=== PATIENT | female | born 1955 | race Caucasian/White ===

== ENCOUNTER 2024-10-04 18:06 | Inpatient (IN) | payer MEDICARE, SELFPAY ==
[2024-10-04] VITALS (19 sets, daily range): BP systolic 120–152; BP diastolic 69–85; PULSE 100–132; RESP 22–32; TEMP 36.7–36.9; O2SAT 89–96; BMI 43.6
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
--- NOTE | 2024-10-04 19:39 | CRLHL7_ITS ---
For Patients: As a result of the Century Cures Act, medical imaging exams and procedure reports are released immediately into your electronic medical record. You may view this report before your referring provider. If you have questions, please contact your health care provider. INDICATION: Dyspnea and weakness. TECHNIQUE: Chest 2 views. COMPARISON: None. FINDINGS: Cardiovascular and mediastinum: There is cardiomegaly . Lungs and pleural spaces: Diffuse vascular congestion and interstitial edema. No lobar consolidation. No sign of pleural effusion or pneumothorax. Bones and soft tissues: No significant findings. IMPRESSION: Findings suggesting congestive heart failure with diffuse interstitial edema. Dictated by Waldemar Ruff MD @ 10/04/2024 8:45:28 PM (Electronically Signed)
[2024-10-04 20:33] LABS: Basophils Absolute Auto 0.03 K/uL (0.00-0.30); Basophils Percent Auto 0.3 % (0.0-3.0); Eosinophils Absolute Auto 0.08 K/uL (0.00-0.50); Eosinophils Percent Auto 0.8 % (0.0-7.0); Hematocrit 41.5 % (33.0-51.0); Hemoglobin* 11.9 gm/dL (12.0-16.0); Immature Granulocytes Abs Auto 0.03 K/uL (0.00-0.30); Immature Granulocytes Pct Auto 0.3 %; Lymphocytes Percent Auto 7.6 % (20-44); Mean Corpuscular HGB Conc 29 gm/dL (32-36); Mean Corpuscular Hemoglobin 30 pg (26-34); Mean Corpuscular Volume 103 fL (80-100); Monocytes Percent Auto 7.7 % (0.0-11.0); Neutrophils Percent Auto 83.3 % (42.0-72.0); Platelet Count* 100 K/uL (140-440); RDW Coefficient of Variation % 12.8 % (11.5-15.5); Red Blood Count 4.03 m/uL (4.00-5.20); White Blood Count* 9.68 K/uL (4.50-11.00)
[2024-10-04 20:36] LABS: Slide Review Reflex No
[2024-10-04 20:48] LABS: Albumin* 3.9 g/dL (3.3-5.0); Chloride* 97 mmol/L (96-114); Potassium* 4.1 mmol/L (3.6-5.1); Sodium* 144 mmol/L (135-149)
[2024-10-04 20:51] LABS: Alanine Aminotransferase* 13 U/L (4-35); Alkaline Phosphatase* 78 U/L (40-150); Aspartate Amino Transferase* 17 U/L (12-35); Bilirubin Total* 0.8 mg/dL (0.1-1.5); Blood Urea Nitrogen* 18 mg/dL (7-30); Creatinine* 0.8 mg/dL (0.5-1.5); Estimated Glomerular Filt Rate 80 ml/min; Glucose* 105 mg/dL (60-115); Total Protein* 6.8 g/dL (6.0-8.3)
[2024-10-04 20:52] LABS: Calcium* 9.3 mg/dL (8.4-10.6)
[2024-10-04 20:56] LABS: Anion Gap 7 mEq/L (7-15)
[2024-10-04 20:58] LABS: Carbon Dioxide* 39 mmol/L (20-32)
[2024-10-04 21:03] LABS: NT Pro B Type NatriureticPept* 1790 pg/mL; Troponin I* 0.03 ng/mL (0.01-0.04)
--- OUTSIDE RECORDS SUMMARY | 2024-10-04 21:08 | XMS_ITS | Encounter Summary ---
Author Organization [facility] Address [address] [place] [address] Care Team Providers Care Laborer/Key Man Name Role Phone Saleem Call M.D. Primary Care Provider [phone] Encounter Details Date Type Department Care Team (Latest Contact Info) Description 08/25/2024 6:10 PM PORTAL DEVELOPER - 08/25/2024 11:59 PM [facility] Encounter Department of Laboratory Medicine in [address] [phone] Lona Cedillo M.D. [address] [place] [address] Graves' Disease Discharge Disposition: Home or Self Care Social History Tobacco Use Types Packs/Day Years Used Date Smoking Tobacco: Former Cigarettes Q uit: 03/22/1978 Smokeless Tobacco: Never Alcohol Use Standard Drinks/Week Comments Yes 0 (1 standard drink = 0.6 oz pure alcohol) social; 1 drink every few months [facility] Utilities Answer Date Recorded In the past 12 months has e [place] [employer], gas, oil, or water [employer] threatened to shut off services in your home? No 11/05/2023 Humiliation, Afraid, Rape, and Kick questionnair e Answer Date Recorded Within the last year, have y ou been afraid of your partner or ex-partner? No 10/24/2023 Within the last year, have y ou been humiliated or emotionally abused in other ways by your partner or ex-partner? No Within the last year, have y ou been kicked, hit, slapped, or otherwise physically hurt by your partner or ex-partner? No 10/24/2023 Within the last year, have y ou been raped or forced to have any kind of sexual activity by your partner or ex-partner? No 10/24/2023 Social Connection and Isolation Panel [NHANES] A nswer Date Recorded In a typical week, how many times do you talk on the phone with family, friends, or neighbors? Twice a week 01/15/20 How often do you get togethe r with friends or relatives? Once a week 01/15/2020 How often do you attend chur ch or restorationist services? 1 to 4 times per year 01/15/2020 Do you belong to any clubs o r organizations such as yarsanism groups, unions, fraternal or athletic groups, or school groups? Yes 01/15/2020 How often do you attend meet ings of the clubs or organizations you belong to? 1 to 4 times per year 01/15/2020 Are you , , di vorced, , never , or living with a partner? 01/15/2020 AUDIT-C Answer Date Recorded Q1: How often do you have a drink containing alc ohol? Monthly or less 01/15/2020 Q2: How many drinks containi ng alcohol do you have on a typical day when you are drinking? 1 or 2 01/15/2020 Q3: How often do you have si x or more drinks on one occasion? Never 01/15/2020 Overall Financial Resource Strain (CARDIA) Answe r Date Recorded How hard is it for you to pa y for the very basics like food, housing, medical care, and heating? Somewhat hard 01/15/2020 PHQ-2 Answer Date Recorded PHQ-2 Score 3 05/05/2024 [facility] - Occupational Stress Questionnaire Answer Date Recorded Do you feel stress - tense, restless, nervous, or anxious, or unable to sleep at night because your mind is troubled all the time - these days? Rather much 01/15/2020 Exercise Vital Sign Answer Date Recorde d On average, how many days pe r week do you engage in moderate to strenuous exercise (like a brisk walk)? 0 days 11/05/2023 On average, how many minutes do you engage in exercise at this level? 0 min 11/05/2023 Hunger Vital Sign Answer Date Recorded Within the past 12 months, y ou worried that your food would run out before you got the money to buy more. Never true 11/05/19 Within the past 12 months, t he food you bought just didn't last and you didn't have money to get more. Never true 11/05/2023 PRAPARE - Transportation Answer Date Re corded In the past 12 months, has l ack of transportation kept you from medical appointments or from getting medications? No 10/12 In the past 12 months, has l ack of transportation kept you from meetings, work, or from getting things needed for daily living? Yes 11/05/2023 Depression Answer Date Recor ded PHQ-9 Total Score (max 27) 12 05/05 Nutrition Answer Date Recorded On average, how many serving s of fruits and vegetables do you eat per day (serving size is equal to 1 cup or approximately the size of a tennis ball)? 0-2 11/05/2023 Dental Answer Date Recorded Dental: Regular Dentist No 10/24/19 Employment Answer Date Recorded Employment status Retired 11/05/2023 Housing Stability Answer Date Recorded What is your living situation today? I have a [facility] place to live 11/05/2023 Education Answer Date Recorded What is the highest level of school you have completed or the highest degree you have received? 12th grade 01/15/2020 Comments No Sex and Gender Information Value Date Recorded Sex Assigned at Female 11/05/2023 11:46 AM PORTAL DEVELOPER Legal Sex Female 11:47 AM PORTAL DEVELOPER Gender Identity Female 11/05/2023 11:46 AM PORTAL DEVELOPER Sexual Orientation Straight 11/05/2023 11 :46 AM PORTAL DEVELOPER documented as of this encounter Medications at Time of Discharge acetaminophen (TYLENOL) 500 mg tablet Take 2 tablets (1,000 mg total) by mouth 4 (four) times a day as needed for pain. 03/01/2023 amoxicillin (for_AMOXIL) 500 mg capsule Take 4 capsules by mouth once. Prior to dental procedure 10/09/2011 apixaban (Eliquis) 5 mg tablet Take 1 tablet (5 mg total) by mouth 2 (two) times a day. 180 tablet 3 07/09/2024 atorvastatin (Lipitor) 40 mg tablet take one tablet by mouth at bedtime 90 tablet 3 05/14/2024 B complex-vitamins (Balanced B-50) tablet Take 1 tablet by mouth daily. carvediloL (Coreg) 6.25 mg tablet Take 1 tablet (6.25 mg total) by mouth 2 (two) times a day with meals. 180 tablet 3 07/09/2024 cholecalciferol, vitamin D3, (cholecalciferol ) 25 mcg (1,000 Unit) tabletIndication s:Deficiency Vitamin D Take 1 tablet (25 mcg total) by mouth daily. 30 tablet 11 07/10/2024 ferrous sulfate 325 mg (65 mg iron) tablet Take 1 tablet (65 mg of iron total) by mouth every other day. 03/01/2023 gabapentin (Neurontin) 300 mg capsule Take 1 capsule (300 mg total) by mouth 3 (three) times a day. 180 capsule 3 07/09/2024 gabapentin (Neurontin) 600 mg tablet TAKE ONE TABLET BY MOUTH AT BEDTIME . 90 tablet 3 04/15/2024 levothyroxine (SYNTHROID, LEVOTHROID) 137 mcg tablet Take 1 tablet (137 mcg total) by mouth daily. 90 tablet 3 10/31/2023 lidocaine (LIDODERM) 5 % Place 1 patch on the skin daily. Apply to lower back. 03/01/2023 oxyCODONE (Roxicodone) 5 mg immediate release tabletIndication s:Chronic Pain/Nonacute Pain Take 1 tablet (5 mg total) by mouth every 6 (six) hours as needed for pain Indication: Chronic Pain/Nonacute Pain. 120 tablet 07/09/2024 polyethylene glycol (MIRALAX) 17 gram powder packet Take 1 packet (17 g total) by mouth daily as needed for constipation. Dissolve each 17 g dose in 240 mLs (8 ounces) of beverage. 03/01/2023 spironolactone (Aldactone) 25 mg tablet Take 1 tablet (25 mg total) by mouth daily. Fill upon patient reqest. 90 tablet 3 07/09/2024 torsemide (Demadex) 20 mg tablet Take 1 tablet (20 mg total) by mouth daily. 90 tablet 3 07/09/2024 documented as of this encounter Plan of Treatment Not on file documented as of this encounter Procedures Procedure Name Priority Date/Time Associated Diagnosis Comments THYROGLOBULIN MASS SPECTROMETRY, S Routine 08/25/2024 6:37 PM PORTAL DEVELOPER THYROGLOBULIN, TM, REFLEX TO LC-MS/MS OR IMMUNOASSAY, S Routine 08/25/2024 6:37 PM PORTAL DEVELOPER Graves' Disease documented in this encounter Results * (ABNORMAL) Thyroglobulin Mass Spectrometry (08/25/2024 6:37 PM PORTAL DEVELOPER) Thyroglobulin, Back Strip Machine Operator., S 95(H) Athyrotic <0.2, Intact thyroid <=33 ng/mL 09/11/2024 1:51 PM PORTAL DEVELOPER [facility] Interpretation Thyroglobulin (Tg) levels must be interpreted in the context of TSH levels, serial Tg measurements and radioiodine ablation status. Tg levels of > or = 10 ng/mL in athyrotic individuals on suppressive therapy indicate a significant (>25%) risk of clinically detectable recurrent papillary/folli cular thyroid cancer. 09/11/2024 1:51 PM PORTAL DEVELOPER [facility] Comment: ----ADDITIONAL INFORMATION---- PLEASE NOTE: Flagging is based on athyrotic individuals. The testing method is LC-MS/MS of an immunoaffinity purified tryptic digest of thyroglobulin. Values obtained from different assay methods or kits may be different and cannot be used interchangeably. The results cannot be interpreted as absolute evidence for the presence or absence of malignant disease. This test was developed and its performance characteristics determined by [facility] in a manner consistent with CLIA requirements. This test has not been cleared or approved by the U.S. Food and Drug Administration. Blood 08/25/2024 6:37 PM PORTAL DEVELOPER 08/27/2024 2:10 PM PORTAL DEVELOPER Lona R Nguyen M.D. LAB BLOOD NON ADD-ON Fin al Result Performing Organization Address [facility] de Phone Number [facility] [address] [place] [address] [facility] [address] [place] [address] [place] [id number] * (ABNORMAL) Thyroglobulin, Tumor Marker Reflex to LC-MS/MS or Immunoassay (08/25/2024 6:37 PM PORTAL DEVELOPER) Thyroglobulin Antibody, S 12(H) <1.8 IU/mL 08/27/2024 9:17 AM PORTAL DEVELOPER [facility] Comment: Thyroglobulin Antibody > or = 1.8 IU/mL. Thyroglobulin performed by LC-MS/MS to follow. PLEASE NOTE: The given cutoff of <1.8 IU/mL is for the detection of potential thyroglobulin antibody (TgAb) interference in thyroglobulin immunoassays. Thyroglobulin flagging is based on athyrotic reference values. A thyroglobulin antibody (TgAb) reference cutoff of <4.0 IU/mL may be more suitable for the evaluation of autoimmune thyroiditis. The thyroglobulin antibody testing method is an immunoenzymatic assay manufactured by [employer] and performed on the [employer] DXI 800. Values obtained from different assay methods or kits may be different and cannot be used interchangeably. The results cannot be interpreted as absolute evidence for the presence or absence of malignant disease. Blood (Blood, Venous) 08/25/2024 6:37 PM PORTAL DEVELOPER 08/27/2024 8:02 AM PORTAL DEVELOPER Lona Cedillo M.D. LAB BLOOD NON ADD-ON Fin al Result Performing Organization Address [facility] Co de Phone Number [facility] [address] [place] [address] [facility] [address] [place] [address] documented in this encounter Visit Diagnoses Diagnosis Graves' Disease documented in this encounter Additional Health Concerns Assessment Noted Time PHQ-9 Depression Total Score: 12 024 2:10 PM CDT documented as of this encounter Care Teams Laborer/Key Man Relationship Specialty Start Date End Date Saleem Call M.D. [phone] [place] [phone] PCP - General 06/22/17 [employer] 10/24/23 documented as of this encounter
--- OUTSIDE RECORDS SUMMARY | 2024-10-04 21:08 | XMS_ITS | Clinical Summary ---
Author Organization [facility] Address [address] [place] [address] Care Team Providers Care Electric Locomotive Crane Operator Name Role Phone Saleem Call M.D. Primary Care Provider [phone] Source Comments Patient records contain information from all sites at [facility]. For routine questions regarding patient records, call [phone] during business hours, M-F 8:00 AM - 5:00 PM Central Time. Record requests for emergency care only can be directed to [phone] at any time.[facility] Allergies Active Allergy Reactions Criticality Noted Date Comments Adhesive Tape-Silicones Other (see comments) Skin tears per [employer] Chloroprene Polymer Rash 05/23/2018 Codeine GI intolerance 11/17/2013 Hydrocodone-Acetaminophe n Other (see comments) 10/02/2011 No reaction noted in [employer]. Nitrofurantoin Monohyd/M-Cryst Other (see comments) 06/21/2023 Query acute pulmonary toxicity. Had marked increase in dyspnea after following the drug on 2 occasions. Sulfa (Sulfonamide Antibiotics) GI intolerance 07/24/2014 Thimerosal Other (see comments) 03/07/2016 Red, itchy eyes. Medications * This document contains information received from the source organization and may not represent a complete record from that organization. amoxicillin (for_AMOXIL) 500 mg capsule Take 4 capsules by mouth once. Prior to dental procedure 2 Active acetaminophen (TYLENOL) 500 mg tablet Take 2 tablets (1,000 mg total) by mouth 4 (four) times a day as needed for pain. 3 Active lidocaine (LIDODERM) 5 % Place 1 patch on the skin daily. Apply to lower back. 3 Active Additional Information Patient taking differently:1 patch transdermalAs needed, Apply to lower back., Informant: Self, Reported on 08/26/2024 polyethylene glycol (MIRALAX) 17 gram powder packet Take 1 packet (17 g total) by mouth daily as needed for constipation. Dissolve each 17 g dose in 240 mLs (8 ounces) of beverage. 3 Active ferrous sulfate 325 mg (65 mg iron) tablet Take 1 tablet (65 mg of iron total) by mouth every other day. 3 Active levothyroxine (SYNTHROID, LEVOTHROID) 137 mcg tablet Take 1 tablet (137 mcg total) by mouth daily. 90 tablet 3 4 Active Additional Information Patient not taking.Reported on 08/26/2024 gabapentin (Neurontin) 600 mg tablet TAKE ONE TABLET BY MOUTH AT BEDTIME . 90 tablet 3 4 Active atorvastatin (Lipitor) 40 mg tablet take one tablet by mouth at bedtime 90 tablet 3 4 Active B complex-vitami ns (Balanced B-50) tablet Take 1 tablet by mouth daily. Active oxyCODONE (Roxicodone) 5 mg immediate release tabletIndicati ons:Chronic Pain/Nonacute Pain Take 1 tablet (5 mg total) by mouth every 6 (six) hours as needed for pain Indication: Chronic Pain/Nonacute Pain. 120 tablet 4 Active apixaban (Eliquis) 5 mg tablet Take 1 tablet (5 mg total) by mouth 2 (two) times a day. 180 tablet 3 4 Active carvediloL (Coreg) 6.25 mg tablet Take 1 tablet (6.25 mg total) by mouth 2 (two) times a day with meals. 180 tablet 3 4 Active gabapentin (Neurontin) 300 mg capsule Take 1 capsule (300 mg total) by mouth 3 (three) times a day. 180 capsule 3 4 Active spironolactone (Aldactone) 25 mg tablet Take 1 tablet (25 mg total) by mouth daily. Fill upon patient reqest. 90 tablet 3 4 07/09/20 25 Active torsemide (Demadex) 20 mg tablet Take 1 tablet (20 mg total) by mouth daily. 90 tablet 3 4 Active cholecalcifero l, vitamin D3, (cholecalcifer ol) 25 mcg (1,000 Unit) tabletIndicati ons:Deficiency Vitamin D Take 1 tablet (25 mcg total) by mouth daily. 30 tablet 11 4 Active ascorbic acid, vitamin C, (ascorbic acid) 500 mg tablet Take 500 mg by mouth daily. Active MAGNESIUM ORAL Take 1 tablet by mouth as needed (muscle cramps). Active Active Problems Problem Noted Date Diagnosed Date Depression Major Recurrent Mild 10/24/2023 Acidosis Lactic 02/16/2023 Unspecified Injury Liver Initial 02/16/2023 Hypothyroidism Acquired 02/16/2023 Thrombocytopenia 02/16/2023 Debility 02/16/2023 Encephalopathy Metabolic 02/16/2023 Cardiomyopathy 02/16/2023 Respiratory Failure With Hypoxia 02/13/2023 Chronic Kidney Disease (CKD) , Stage 3a Glomerular Filtration Rate (GFR) 45 To 59 11/16/2022 History Of Falling 03/15/2020 Morbid Severe Obesity Due To Excess Calories 02/2020 Venous Insufficiency Chronic Peripheral 09/08/20 19 Edema Leg Multifactorial 09/08/2019 Body Mass Index 35.0 To 35.9 Adult 09/07/2019 Fracture Femur Shaft Transve rse Nondisplaced Closed Subsequent With Routine Healing Right 09/06/2019 Anxiety Generalized Disorder 05/19/2019 Gammopathy Monoclonal Nonspecific 10/06/2016 Anemia 09/28/2016 Chronic Pain Syndrome 10/12/2015 Heart Failure NOS 01/05/2015 Major Depressive Disorder Single Episode Unspeci fied 12/15/2014 Overview (01/30/2017): Major Depression Single Episode NOS (296.20) Graves' Disease 09/15/2011 Atrial Fibrillation Unspecified 12/12/2010 Pain Hip Right Resolved Problems Problem Noted Date Diagnosed Date Resolved Date Hypercarbic Respiratory Failure 02/16/2023 10/24/2023 Acute Systolic (Congestive) Heart Failure 02/16/2023 06/21/2023 Failure Renal Acute (Acute Kidney Injury) 02/16/2023 04/05/2023 Single Subsegmental Thrombot ic Pulmonary Embolism Without Acute Cor Pulmonale 02/16/2023 Failed Total Hip Arthroplasty Initial Right 11/03/2019 11/16/2022 Overview (11/03/2019): Added automatically from request for surgery [id number] Stasis Ulcer With Varicose Vein Left 09/08/2019 10/24/2023 Acute On Chronic Diastolic ( Congestive) Heart Failure 09/07/2019 04/05/2023 Stasis Ulcer Varicose Vein Right 09/07/2019 10/24/2023 Urinary Tract Infection Site Not Specified 09/07/2019 01/27/2021 Ulcer Lower Limb 10/08/2017 03/22/2018 Ulcer Leg 02/15/2016 03/22/2018 Vascular (Lower Extremity) A nd Diabetic Ulcer NOS 06/14/2015 10/24/2023 Overview (05/19/2019): Bilateral Depressive Disorder 09/15/2011 07/22/20 19 Overview (01/30/2017): Depression Encounters Date Type Department Care Team Description 08/26/2024 1:30 PM MUTUAL FUNDS AGENT Virtual Visit Division of Endocrinology in [address] [phone] Lona Cedillo M.D. Graves' Disease 08/26/2024 12:45 PM MUTUAL FUNDS AGENT Clinical Communication Virtual Review in [address] [phone] Pre-visit Intake 08/25/2024 6:10 PM MUTUAL FUNDS AGENT - 08/25/2024 11:59 PM MUTUAL FUNDS AGENT Hospital Encounter Department of Laboratory Medicine in [address] [phone] Lona Cedillo M.D. Graves' Disease Discharge Disposition: Home or Self Care 08/06/2024 Orders Only Division of Endocrinology in [address] [phone] Lona Cedillo M.D. Graves' Disease (Primary Dx) 07/29/2024 Orders Only Division of Endocrinology in [place], [place] [address] [place] [address] Lona Cedillo M.D. Graves' Disease (Primary Dx) 07/15/2024 Orders Only [facility] PCP TH MNT Saleem Call M.D. Deficiency Estrogen Post Menopausal; Screening Mammogram Breast Cancer 07/10/2024 Orders Only Department of Family Medicine, [facility], in [address] [phone] Peyton Reyes APRN, C.N.P. Deficiency Vitamin D (Primary Dx) 07/09/2024 3:30 PM CDT Office Visit Department of Family Medicine, [facility], in [address] [phone] Peyton Reyes APRN, C.N.P. Anxiety Generalized Disorder (Primary Dx); Chronic Pain Syndrome; Hypovitaminosis D; Deficiency Vitamin D Discharge Disposition: Home or Self Care 07/09/2024 3:04 PM CDT - 07/09/2024 11:59 PM CDT Hospital Encounter Department of Laboratory Medicine in [address] [phone] Saleem Call M.D. Hypovitaminosis D; Graves' Disease; Chronic Kidney Disease (CKD), Stage 3a Glomerular Filtration Rate (GFR) 45 To 59 ([facility]) Discharge Disposition: Home or Self Care from Last 3 Months Immunizations Immunization Administration Dates Next Due PCV20 10/24/2023(Deferred: Patient dec isi) RZV (SHINGRIX) 10/24/2023(Deferred: Patient dec isi) SARS-COV-2 (COVID-19) - MODE RNA (12 YEARS AND OLDER) Fall Seasonal 10/24/2023(Deferred: Patient decision) SARS-COV-2 (COVID-19) - PFIZ ER (Discontinued)(12 years or older) 09/12/2021,12/28/2020,11/18/2020 Td (Adult), adsorbed 06/21/1993 Td Preservative Free (TENIVA C, DECAVAC) 06/03/2003 Tdap 08/22/2018 influenza trivalent high dos e (HD)(PF) 10/24/2023(Deferred: Patient decision) Family History Medical History Relation Name Comments Hypertension Brother 1 brother Drug abuse Brother 2 Klaus Coronary artery disease Father Roderick Heart attack Father Roderick Kidney disease Mother mother Relation Name Status Comments Brother 1 brother Brother 2 Klaus Father Roderick Mother mother Social History Tobacco Use Types Packs/Day Years Used Date Smoking Tobacco: Former Cigarettes Q uit: 03/22/1978 Smokeless Tobacco: Never Tobacco Cessation:Counseling Given: Not Answered Alcohol Use Standard Drinks/Week Comments Yes 0 (1 standard drink = 0.6 oz pure alcohol) social; 1 drink every few months [facility] [employer] Answer Date Recorded In the past 12 months has e [employer], [employer], or water [employer] threatened to shut off services in your [...] week 01/15/2020 How often do you attend [facility] or gnosticism services? 1 to 4 times per year 01/15/2020 Do you belong to any clubs o r organizations such as sabianist groups, unions, fraternal or athletic groups, or [...] Answer Date Recorded PHQ-2 Score 3 05/05/2024 [facility] - Occupational Stress Questionnaire Answer Date Recorded [...] money to buy more. Never true 11/05/19 24 Within the past 12 months, t he [...] your living situation today? I have a [facility] place to live 11/05/2023 Education Answer Date Recorded What is the highest level of school you have completed or the highest degree you have received? 12th grade 01/15/2020 Comments No Sex and Gender Information Value Date Recorded Sex Assigned at Female 11/05/2023 11:46 AM MUTUAL FUNDS AGENT Legal Sex Female 11:47 AM MUTUAL FUNDS AGENT Gender Identity Female 11/05/2023 11:46 AM MUTUAL FUNDS AGENT Sexual Orientation Straight 11/05/2023 11 :46 AM MUTUAL FUNDS AGENT Last Filed Vital Signs Vital Sign Reading Time Taken Comments Blood Pressure 128/80 07/09/2024 3:25 PM CDT Pulse 87 07/09/2024 3:25 PM CDT Temperature 36.2 C (97.2 F) 07/09/2024 3:25 PM CDT Respiratory Rate 16 02/25/2024 7:09 PM CDT Oxygen Saturation 91% 02/25/2024 8:00 PM CDT Inhaled Oxygen Concentration - - Weight 126 kg (277 lb 12.5 oz) 07/09/2024 3:25 P M CDT Height 172.7 cm (5' 8) 04/15/2023 8:05 PM CDT Body Mass Index 42.24 04/15/2023 8:05 PM CDT Plan of Treatment Health Maintenance Due Date Last Done Comments Bone Density Scan (Osteoporosis Screen) 1955 CT Colonography 1955 Cologuard 1955 Colonoscopy 1955 FIT 1955 Mammogram 1955 Pneumococcal vaccine (50+ years) (1 of 2 - PCV) 11/09/1974 Zoster Vaccines (1 of 2) 11/09/2005 RSV vaccine - (32-36 weeks) or 60+ years (1 - Risk 60-74 years 1-dose series) 2015 COVID-19 Vaccine ( season) 2024 09/12/2021, 12/28/2020, 11/18/2020 Influenza Vaccine (#1) 2024 Depression Monitoring (PHQ-9) 09/04/2024 05/05/2024 Depression Monitoring (PHQ-9 for quality tracking) 09/10/2024 Fall Risk Screen (Annual) 09/10/2024 Visit: Medicare Annual Wellness 10/25/2024 10/24/2023 Creatinine Level (Kidney Function Test) 02/24/2025 02/25/2024, 10/24/2023, 04/30/2023, Additional history exists Potassium Level 02/24/2025 02/25/2024, 10/11, 04/30/2023, Additional history exists Sodium Level 02/24/2025 02/25/2024, 10/11, 04/30/2023, Additional history exists Thyroid Stimulating Hormone (TSH) test for thyroid function 07/09/2025 07/09/2024, 10/24/2023, 02/13/2023, Additional history exists Visit: Annual, age 65+ (or Medicare and <65) 07/09/2025 07/09/2024 Fasting Glucose for Diabetes Screening 02/24/2027 02/25/2024, 10/24/2023, 04/30/2023, Additional history exists DTaP,Tdap,and Td Vaccines (2 - Td or Tdap) 08/22/2028 08/22/2018, 06/03/2003, 06/21/1993 Hepatitis C Screening Completed 08/22/2018 Colorectal Cancer Screening Discontinued IPV Vaccines Aged Out No longer eligi ble based on patient's age to complete this topic Medical Devices Implanted Type Area Natural Resource Technician Device Identifier Shelf Expiration Date Model / Serial / Lot Hardware E.G. Pins/Screws/Jaron s Hardware e.g. pins/screws /rods Knee Description:Screws in left k nee. ACL repair. Trilogy-Screw 6.5x30 - Shepherd [id number] Implanted:Qty: 1 on 03/09/2011 Hardware e.g. pins/screws /rods [employer] Description:Device Manufactu rer - [employer]. Device Status Text - [id number]. Trilogy-Screw 6.5x40 - Shepherd [id number] Implanted:Qty: 1 on 03/09/2011 Hardware e.g. pins/screws /rods [employer] Description:Device Manufactu rer - [employer]. Device Status Text - [id number]. Hip Implant Hip Implant Right: Hip Zim-Liner Poly Xlpe 0 Deg 36x50 - Shepherd [id number] Implanted:Qty: 1 on 03/09/2011 Hip Implant Other/Legacy - See Implant Description [employer] Description:Device Manufactu rer - [employer]. Body Location - Other. Right. Device Status Text - [id number] [id number]. Zim. Shell Tril W Holes 54 - Shepherd [id number] Implanted:Qty: 1 on 03/09/2011 Hip Implant Other/Legacy - See Implant Description [employer] Description:Device Manufactu rer - [employer]. Body Location - Other. Right. Device Status Text - [id number] [id number]. [place]-Stem [place] 7 Hi - Shepherd [id number] Implanted:Qty: 1 on 03/09/2011 Hip Implant Other/Legacy - See Implant Description [employer] Description:Device Manufactu rer - [employer]. Body Location - Other. Right. Device Status Text - [id number] [id number]. J J Articul Darius Head 36 - 2.0 - Shepherd [id number] Implanted:Qty: 1 on 03/09/2011 Hip Implant Other/Legacy - See Implant Description [employer] Description:Device Manufactu rer - [employer]. Body Location - Other. Right. Device Status Text - [id number] [id number]. Procedures Procedure Name Priority Date/Time Associated Diagnosis Comments THYROGLOBULIN MASS SPECTROMETRY, S Routine 08/25/2024 6:37 PM MUTUAL FUNDS AGENT THYROGLOBULIN, TM, REFLEX TO LC-MS/MS OR IMMUNOASSAY, S Routine 08/25/2024 6:37 PM MUTUAL FUNDS AGENT Graves' Disease 25-HYDROXYVITAMIN D2 AND D3, S Routine 07/09/2024 3:13 PM CDT Hypovitaminosis D MAGNESIUM, S Routine 07/09/2024 3:13 PM CDT Chronic Kidney Disease (CKD), Stage 3a Glomerular Filtration Rate (GFR) 45 To 59 (HCC) THYROTROPIN RECEPTOR AB, S Routine 07/09/2024 3:13 PM CDT Graves' Disease THYROGLOBULIN, TM, REFLEX TO LC-MS/MS OR IMMUNOASSAY, S Routine 07/09/2024 3:13 PM CDT Graves' Disease T4 (THYROXINE), FREE, S Routine 07/09/2024 3:13 PM CDT Graves' Disease THYROID-STIMULATING HORMONE-SENSITIVE (S-TSH) Routine 07/09/2024 3:13 PM CDT Graves' Disease VITAMIN D, IMMUNOASSAY, TOTAL, S Routine 07/09/2024 3:13 PM CDT Hypovitaminosis D COMPREHENSIVE METABOLIC PANEL, S/P STAT 02/25/2024 7:30 PM CDT HCV AB SCRN W/REFLEX TO HCV PCR, S Routine 08/22/2018 11:35 AM MUTUAL FUNDS AGENT Screening Test Laboratory from Last 3 Months or Most Recently Relevant to Health Maintenance Results * (ABNORMAL) Thyroglobulin Mass Spectrometry (08/25/2024 6:37 PM MUTUAL FUNDS AGENT) Thyroglobulin, Kelly Machine Operator., S 95(H) Athyrotic <0.2, Intact thyroid <=33 ng/mL 09/11/2024 1:51 PM MUTUAL FUNDS AGENT [facility] Interpretation Thyroglobulin (Tg) levels must be interpreted in the context of TSH levels, serial Tg measurements and radioiodine ablation status. Tg levels of > or = 10 ng/mL in athyrotic individuals on suppressive therapy indicate a significant (>25%) risk of clinically detectable recurrent papillary/folli cular thyroid cancer. 09/11/2024 1:51 PM MUTUAL FUNDS AGENT [facility] Comment: ----ADDITIONAL INFORMATION---- PLEASE NOTE: Flagging is [...] developed and its performance characteristics determined by [facility] in a manner consistent with CLIA requirements. This test has not been cleared or approved by the U.S. Food and Drug Administration. Blood 08/25/2024 6:37 PM MUTUAL FUNDS AGENT 08/27/2024 2:10 PM MUTUAL FUNDS AGENT us Lona Cedillo M.D. LAB BLOOD NON ADD-ON Fin al Result [facility] [address] [place] [address] [facility] [address] [place] [address] [place] [address] * (ABNORMAL) Thyroglobulin, Tumor Marker Reflex to LC-MS/MS or Immunoassay (08/25/2024 6:37 PM MUTUAL FUNDS AGENT) Only the most recent of2 resultswithin the time period is included. Thyroglobulin Antibody, S 12(H) <1.8 IU/mL 08/27/2024 9:17 AM MUTUAL FUNDS AGENT [facility] Comment: Thyroglobulin Antibody > or = [...] method is an immunoenzymatic assay manufactured by [employer] and performed on the Z[employer] DXI 800. Values obtained from different assay methods or kits may be different and cannot be used interchangeably. The results cannot be interpreted as absolute evidence for the presence or absence of malignant disease. Blood (Blood, Venous) 08/25/2024 6:37 PM MUTUAL FUNDS AGENT 08/27/2024 8:02 AM MUTUAL FUNDS AGENT Lona Cedillo M.D. LAB BLOOD NON ADD-ON Fin al Result [facility] [address] [place] [address] [facility] [address] [place] [address] * (ABNORMAL) Vitamin D, Immunoassay, Total, Serum (07/09/2024 3:13 PM CDT) Pathologist [facility] [place] Vitamin D, Immunoassay, Total, S 9(L) 20 - 80 ng/mL 07/09/2024 9:42 PM CDT ECL[facility] Comment: Interpretation: <10 ng/mL (severe deficiency) Optimum levels within the healthy population are 20-50, patients with bone disease may benefit from high levels within this range Blood (Blood, Venous) 07/09/2024 3:13 PM CDT 07/09/2024 8:49 PM CDT Saleem Call M.D. LAB BLOOD ADD-ON Final Re sult Performing Organization Address City/[facility]/ZIP Co de Phone Number [facility] [address] [place] [address], [facility] ECLR [facility] [address] * Thyrotropin Receptor Antibody (07/09/2024 3:13 PM CDT) Pathologist [facility] [place] Thyrotropin Receptor Ab, S <1.10 0.00 - 1.75 IU/L 07/09/2024 9:30 PM CDT [facility] Comment: ----ADDITIONAL INFORMATION---- At a decision limit of 1.75 IU/L, this assay has 97% sensitivity and 99% specificity for detection of Graves' disease. In healthy individuals and in patients with thyroid disease without diagnosis of Graves' disease, the upper limit of anti-TSHR values are 1.22 IU/L and 1.58 IU/L, respectively (97.5th percentiles). Blood (Blood, Venous) 07/09/2024 3:13 PM CDT 07/09/2024 8:47 PM CDT Lona Cedillo M.D. LAB BLOOD ADD-ON Final R esult Performing Organization Address City/[facility]/ZIP Co de Phone Number [facility] [address] [place] [address] [facility] [address] [place] [address] * (ABNORMAL) 25-Hydroxyvitamin D2 and D3 (07/09/2024 3:13 PM CDT) 25-Hydroxy D2 <4.0 ng/mL 07/12/2024 1:19 AM CDT [facility] 25-Hydroxy D3 11 ng/mL 07/12/2024 1:19 AM CDT [facility] 25-Hydroxy D Total 11(L) ng/mL 2023 1:19 AM CDT [facility] Comment: Interpretation: 10-19 ng/mL (mild to moderate deficiency) ----REFERENCE VALUE---- 25-HYDROXY D TOTAL (D2+D3) Optimum levels in the healthy population are 20-50. ----ADDITIONAL INFORMATION---- This test was developed and its performance characteristics determined by [facility] in a manner consistent with CLIA requirements. This test has not been cleared or approved by the U.S. Food and Drug Administration. Blood (Blood, Venous) 07/09/2024 3:13 PM CDT 07/10/2024 8:02 AM CDT Lona Cedillo M.D. LAB BLOOD ADD-ON Final R esult Performing Organization Address City/[facility]/ZIP Co de Phone Number [facility] [address] [place] [address] [facility] [address] [place] [address] [place] [address] * S-TSH (Thyroid-Stimulating Hormone - Sensitive) (07/09/2024 3:13 PM CDT) TSH, Sensitive 0.3 0.3 - 4.2 mIU/L 07/09/2024 3:49 PM CDT [facility] Blood (Blood, Venous) 07/09/2024 3:13 PM CDT 07/09/2024 3:15 PM CDT us Lona Cedillo M.D. LAB BLOOD ADD-ON Final R esult Performing Organization Address City/[facility]/ZIP Co de Phone Number [facility] [address] [place] [id number], [facility] CNFL [facility] in [address] [address] * T4 (Thyroxine), Free (07/09/2024 3:13 PM CDT) T4 (Thyroxine), Free, P 1.1 0.9 - 1.7 ng/dL 07/09/2024 7:50 PM CDT [facility] Blood (Blood, Venous) 07/09/2024 3:13 PM CDT 07/09/2024 6:59 PM CDT us Lona Cedillo M.D. LAB BLOOD ADD-ON Final R esult Performing Organization Address [facility]/ZIP Co de Phone Number [facility] [address] [place] [address], [place] RDWG [facility] in [address] [phone] * (ABNORMAL) Magnesium (07/09/2024 3:13 PM CDT) Magnesium, P 1.4(L) 1.7 - 2.3 mg/dL 07/09/2024 3:32 PM CDT [facility]FL Blood (Blood, Venous) 07/09/2024 3:13 PM CDT 07/09/2024 3:15 PM CDT us Lona Cedillo M.D. LAB BLOOD ADD-ON Final R esult [facility] [address] [place] [address], [facility] CNFL [facility] in [address] [address] * (ABNORMAL) Comprehensive Metabolic Panel (02/25/2024 7:30 PM CDT) Potassium, P 4.1 3.6 - 5.2 mmol/L 02/25/2024 7:54 PM CDT [facility]FL Sodium, P 143 135 - 145 mmol/L 02/25/2024 7:54 PM CDT [facility] Chloride, P 106 98 - 107 mmol/L 02/25/2024 7:54 PM CDT [facility] Bicarbonate, P 26 22 - 29 mmol/L 02/25/2024 7:54 PM CDT [facility] Anion Gap, P 11 7 - 15 02/25/2024 7:54 PM CDT [facility] BUN (Blood Urea Nitrogen), P 18 6 - 21 mg/dL 02/25/2024 7:54 PM CDT [facility] Creatinine 1.05(H) 0.59 - 1.04 mg/dL 02/25/2024 7:54 PM CDT [facility] Estimated GFR (eGFR) 58(L) >=60 mL/min/BS A 02/25/2024 7:54 PM CDT [facility] Comment: Estimated GFR calculated using the 2020 CKD_EPI creatinine equation. Calcium, Total, P 9.1 8.8 - 10.2 mg/dL 02/25/2024 7:54 PM CDT [facility] Glucose, P 104 70 - 140 mg/dL 02/25/2024 7:54 PM CDT [facility] Protein, Total, P 6.5 6.3 - 7.9 g/dL 02/25/2024 7:54 PM CDT [facility] Albumin, P 3.9 3.5 - 5.0 g/dL 02/25/2024 7:54 PM CDT [facility] Aspartate Aminotransferase (AST), P 16 8 - 43 U/L 02/25/2024 7:54 PM CDT [facility]FL Alkaline Phosphatase, P 90 35 - 104 U/L 02/25/2024 7:54 PM CDT [facility]FL Alanine Aminotransferase (ALT), P 16 7 - 45 U/L 02/25/2024 7:54 PM CDT CNFL Bilirubin, Total, P 0.4 0.0 - 1.2 mg/dL 02/25/2024 7:54 PM CDT [facility] Blood (Blood, Venous) 02/25/2024 7:30 PM CDT 02/25/2024 7:34 PM CDT us Burak Morales P.A.-C., P.A. LAB BLOOD ADD-ON F inal Result Performing Organization Address City/[facility]/ZIP Co de Phone Number [facility] [address] [place] [address], [facility] CNFL [facility] [place] [address] * HCV Ab Scrn w/Reflex to HCV PCR, Serum (08/22/2018 11:35 AM MUTUAL FUNDS AGENT) HCV Ab Screen, S Nonreactive Nonreactive 08/23/2018 10:49 AM MUTUAL FUNDS AGENT [facility] Blood (Blood, Venous) 08/22/2018 11:35 AM MUTUAL FUNDS AGENT 08/22/2018 9:50 PM MUTUAL FUNDS AGENT Narrative [facility] - 08/23/2018 10:49 AM MUTUAL FUNDS AGENT Specimen Information: Specimen ID: [id number] Specimen Type: Blood Specimen Collection Start Date: 08/22/2018 11:35 AM Specimen Received Date: 08/22/2018 9:50 PM Specimen ID: [id number] Specimen Type: Blood Specimen Collection Start Date: 08/22/2018 11:35 AM Specimen Received Date: 08/22/2018 9:50 PM us Saleem Call M.D. LAB MICROBIOLOGY - BLOOD ORDERABLES Final Result Performing Organization Address City/[facility]/ZIP Co de Phone Number [facility] [address] [place] [address] from Last 3 Months or Most Recently Relevant to Health Maintenance Insurance [employer] Advance Directives For more information, please contact: [phone] Documents on File Type Date Recorded Patient Hand Tire Trimmer Expl anation Advance Directives 09/06/2019 7:52 PM POA for Healthcare * Full Code (Latest Code Status on File) Date Activated Date Inactivated Comments 02/13/2023 12:37 AM 03/06/2023 3:29 PM Question Answer Comments Full Code: Not Discussed Due to: Patient does not have the capaci ty * Full Code Date Activated Date Inactivated Comments 09/10/2019 5:47 PM 09/22/2019 6:51 PM Question Answer Comments Full Code: Discussed * Full Code Date Activated Date Inactivated Comments 09/06/2019 7:04 PM 09/10/2019 3:36 PM Question Answer Comments Full Code: Discussed Healthcare Agents on File Name Relationship Healthcare Agent Relationship Communication [facility] Care Agent Care Teams Electric Locomotive Crane Operator Relationship Specialty Start Date End Date Saleem Call M.D. [address] [place] [address] JAYESH Guerrero [phone] PCP - General 06/22/17 [employer] R[employer] Technician 10/24/23
--- OUTSIDE RECORDS SUMMARY | 2024-10-04 21:08 | XMS_ITS | Encounter Summary ---
Author Organization [facility] Address [address] [place] [address] Care Team Providers Care Medical Coordinator Pesticide Use Name Role Phone Saleem Call M.D. Primary Care Provider [phone] Reason for Visit * Outpatient (Routine) - Closed Specialty Diagnoses / Procedures Referred By Ronny bryant Referred To Contact Endocrinology Diagnoses Graves' Disease Lona Cedillo M.D. [address] [place] [phone] Phone: tel: fax: [facility] Referral ID Status Reason Start Date Expiration Date Visits Re quested Visits Authorized [id number] Closed 07/29/2024 01/28/2026 1 1 Encounter Details Date Type Department Care Team (Late st Contact Info) Description 08/26/2024 1:30 PM GERMINATION TESTING MANAGER Virtual Visit Division of Endocrinology in [place], [place] [address] [place] [phone] Lona Cedillo M.D. [address] [place] [phone] Graves' Disease Social History Tobacco Use Types Packs/Day Years Used Date Smoking Tobacco: Former Cigarettes Q uit: 03/22/1978 Smokeless Tobacco: Never Alcohol Use Standard Drinks/Week Comments Yes 0 (1 standard drink = 0.6 oz pure alcohol) social; 1 drink every few months [facility] Utilities Answer Date Recorded In the past 12 months has th e [employer], gas, oil, or water [employer] threatened to shut off services in your [...] often do you attend chur ch or christianity services? 1 to 4 times per year [...] Answer Date Recorded PHQ-2 Score 3 05/05/2024 [facility] [place] of Occupat ional Health - Occupational Stress Questionnaire Answer Date Recorded [...] your living situation today? I have a [facility] place to live 11/05/2023 Education Answer Date Recorded What is the highest level of school you have completed or the highest degree you have received? 12th grade 01/15/2020 Comments No Sex and Gender Information Value Date Recorded Sex Assigned at Female 11/05/2023 11:46 AM GERMINATION TESTING MANAGER Legal Sex Female 11:47 AM GERMINATION TESTING MANAGER Gender Identity Female 11/05/2023 11:46 AM GERMINATION TESTING MANAGER Sexual Orientation Straight 11/05/2023 11 :46 AM GERMINATION TESTING MANAGER documented as of this encounter Progress Notes * Lona Cedillo M.D. - 08/26/2024 1:30 PM CST [facility] Endocrinology, Diabetes, and Nutrition Progress Note Consult conducted via real-time audio/video technology by Lona Cedillo M.D. in [facility] to the patient in Patient's Home. The video was changed to a telephone. A friend was also listening in on the phone call today at the patient's request. SUBJECTIVE HISTORY OF PRESENT ILLNESS Zuleyma Samuel is a 68 y.o. female who presents for follow-up of Graves Disease. Please see my progress note dated November 05, 2023 for details. Briefly, Zuleyma Samuel has hadGraves since at least 2009. She had been on methimazole until February 2023 when she was hospitalized for unresponsiveness. 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 At that time, she had detectable TRAb, althoughit was not elevated. Methimazole was subsequently stopped and she was started on levothyroxine. At her post discharge follow-up appointment, her levothyroxine was discontinued when her TSH was suppressed and her free T4 was elevated. Interim history: She has remain off levothyroxine and off methimazole since her last visit in October 2023. 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 Palpitations: None; reports that she is always in A fib but does not monitor her heart rate at home Tremor: Yes in her hands; typically this happens when she is holding her phone Mood disturbance: Yes; increasingly frustrated and depressed mood; also feels more anxious in the last 1-2 months Changes in bowel habits: None reported Edema: Yes; slightly swollen as of yesterday and trying to use diuretics more regularly Eye symptoms: Yes; reports worsening cataracts and dry eyes Relevant labs: Latest Reference Range & Units 07/09/24 15:13 TSH, Sensitive 0.3 - 4.2 mIU/L 0.3 T4 (Thyroxine), Free, P 0.9 - 1.7 ng/dL 1.1 Thyrotropin Receptor Ab, S 0.00 - 1.75 IU/L <1.10 Thyroglobulin Antibody, S <1.8 IU/mL 9.8 (H) The following portions of the patient's history were reviewed and updated as appropriate: allergies, current medications, family history, medical history, social history, surgical history and problemlist. REVIEW OF SYSTEMS As per HPI. OBJECTIVE Physical examination was limited due to the nature of the visit. The patient was seen on video and appeared to be in no acute distress. DIAGNOSTICS Pertinent labs and imaging as per HPI. ASSESSMENT / PLAN #1 Graves Disease, now in remission Zuleyma Samuel is a 68 y.o. female who presents for follow-up of Graves Disease. After her hospitalization in February 2023, she was started on levothyroxine for hypothyroidism in the setting of elevated TSH associated with methimazole use. At her last visit, she had evidence of thyrotoxicosis and le vothyroxine was discontinued. She has now been off treatment for the last 10 months. Her recent labs are notable for normal thyroid function studies and undetectable TRAb. This suggests that she is currently in remission from her Graves disease. As such, she can remain off methimazole and off levothyroxine and have serial assessments upper thyroid function studies as outlined below. Of note, we had requested labs shortly after discontinuation of levothyroxine which were not drawnuntil 1.5 months ago. Her thyroglobulin is elevated, however this test is not clinically useful as she is no longer on levothyroxine. Despite her recent labs, she does report her anxiety has increased in the last 1-2 months. I will request repeat thyroid function studies in further evaluation. If these returned back with normal results, we will continue active surveillance for Graves disease recurrence. We reviewed the symptoms of thyrotoxicosis and encouraged her to have her thyroid function reassessed if she were to develop symptoms. Continue off levothyroxine and methimazole Repeat thyroid function tests due to increased anxiety; requested at [place] If thyroid function continues to be normal, plan to repeat thyroid function studies (TSH and free T4) again in February 2025 If thyroid function is normal in February 2025, I would recommend repeat TSH and free T4 in August 2025 with her primary care provider If these results are normal, she should be followed by annual assessments of thyroid function and aclinical thyroid examination starting in August 2026 I have recommended the following orders: #1 Graves' Disease - Endocrinology office visit (clinic) - S-TSH (Thyroid-Stimulating Hormone - Sensitive); Future; Expected date: 08/26/2024 - T4 (Thyroxine), Free; Future; Expected date: 08/26/2024 - S-TSH (Thyroid-Stimulating Hormone - Sensitive); Future; Expected date: 02/24/2025 - T4 (Thyroxine), Free; Future; Expected date: 02/24/2025 All questions were answered. Patient expressed satisfaction and is in agreement with the plan. Patient's care discussed with Dr. Vera Signed: Lona Cedillo M.D. Endocrinology fellow Cosigned by Eliezer Vera M.D. at 08/27/2024 12:05 PM GERMINATION TESTING MANAGER INATION TESTING MANAGER INATION TESTING MANAGER documented in this encounter Plan of Treatment Scheduled Orders Name Type Priority Associated Diagnoses Orde r Schedule S-TSH (Thyroid-Stimulating Hormone - Sensitive) Lab Routine Graves' Disease Expected: 08/26/2024, Expires: 11/24/2025 T4 (Thyroxine), Free Lab Routine Graves' Disease Expected: 08/26/2024, Expires: 11/24/2025 S-TSH (Thyroid-Stimulating Hormone - Sensitive) Lab Routine Graves' Disease Expected: 02/24/2025, Expires: 11/24/2025 T4 (Thyroxine), Free Lab Routine Graves' Disease Expected: 02/24/2025, Expires: 11/24/2025 documented as of this encounter Visit Diagnoses Diagnosis Graves' Disease documented in this encounter Additional Health Concerns Assessment Noted Time PHQ-9 Depression Total Score: 12 024 2:10 PM CDT documented as of this encounter Care Teams Medical Coordinator Pesticide Use Relationship Specialty Start Date End Date Saleem Call M.D. [id number] [place] [phone] PCP - General 06/22/17 [place] [employer] Laborer 10/24/23 documented as of this encounter
--- OUTSIDE RECORDS SUMMARY | 2024-10-04 21:08 | XMS_ITS | Encounter Summary ---
Author Organization [facility] Address [address] [place] [address] Care Team Providers Care Nursery Nurse Name Role Phone Saleem Call M.D. Primary Care Provider [phone] Reason for Visit * Reason Onset Date Comments Pre-visit Intake 08/26/2024 * Appointment Request (Routine) - Authorized Specialty Diagnoses / Procedures Referred By Ronny bryant Referred To Contact Endocrinology Referral ID Status Reason Start Date Expiration Date V isits Requested Visits Authorized [id number] Authorized 08/05/2024 08/05/2025 1 1 Encounter Details Date Type Department Care Team (Latest Contact Info) Description 08/26/2024 12:[address] [facility]IA[place] Clinical Communication Virtual Review in [place], [place] [address] [place] [phone] Pre-visit Intake Social History Tobacco Use Types Packs/Day Years Used Date Smoking Tobacco: Former Cigarettes Q uit: 03/22/1978 Smokeless Tobacco: Never Tobacco Cessation:Counseling Given: Not Answered Alcohol Use Standard Drinks/Week Comments Yes 0 (1 standard drink = 0.6 oz pure alcohol) social; 1 drink every few months [facility] Utilities Answer Date Recorded In the past 12 months has e electric, gas, oil, or water company threatened to shut off services in your [...] often do you attend chur ch or temple services? 1 to 4 times per year 01/15/2020 Do you belong to any clubs o r organizations such as caodaism groups, unions, fraternal or athletic groups, or [...] 3 05/05/2024 [facility] - Occupational Stress Questionnaire Answer [...] your living situation today? I have a [facility] place to live 11/05/2023 Education Answer Date Recorded What is the highest level of school you have completed or the highest degree you have received? 12th grade 01/15/2020 Comments No Sex and Gender Information Value Date Recorded Sex Assigned at Female 11/05/2023 11:[address] LIAISON Legal Sex Female 11:[address] LIAISON Gender Identity Female 11/05/2023 11:[address] LIAISON Sexual Orientation Straight 11/05/2023 11 :[address] LIAISON documented as of this encounter Plan of Treatment Not on file documented as of this encounter Visit Diagnoses Not on filedocumented in this encounter Additional Health Concerns Assessment Noted Time PHQ-9 Depression Total Score: 12 024 2:10 PM CDT documented as of this encounter Care Teams Nursery Nurse Relationship Specialty Start Date End Date Saleem Call M.D. [id number] [phone] PCP - General 06/22/17 [facility] Work Checker 10/24/23 documented as of this encounter
--- OUTSIDE RECORDS SUMMARY | 2024-10-04 21:08 | XMS_ITS ---
Author Organization [facility] Address [address] [place] [address] Care Team Providers Care Ship Keeper Name Role Phone Unavailable Unavailable Unavailable Surgery Details Not on file Complications Check Surgery Details section. Procedure Estimated Blood Loss Check Surgery Details section. Procedure Findings Check Surgery Details section. Procedure Specimens Taken Check Surgery Details section.
--- OUTSIDE RECORDS SUMMARY | 2024-10-04 21:08 | XMS_ITS | Encounter Summary ---
Author Organization [facility] Address [address] [place] [address] Care Team Providers Care Plate Sensitizer Name Role Phone Saleem Call M.D. Primary Care Provider [phone] Encounter Details Date Type Department Care Team (Late st Contact Info) Description 12/21/2016 Historical Ophthalmology [facility] Teddy Green M.D. [address] [place] [phone] Social History Tobacco Use Types Packs/Day Years Used Date Smoking Tobacco: Former Comments Unknown Sex and Gender Information Value Date Recorded Sex Assigned at Female 11/05/2023 11:46 AM HUMAN SERVICES ASSISTANT Legal Sex Female 11:47 AM HUMAN SERVICES ASSISTANT Gender Identity Female 11/05/2023 11:46 AM HUMAN SERVICES ASSISTANT Sexual Orientation Straight 11/05/2023 11 :46 AM HUMAN SERVICES ASSISTANT documented as of this encounter Progress Notes * Teddy Green M.D. - 12/21/2016 1:52 PM CDT Eye General CHIEF COMPLAINT Dry eyes; Graves' HISTORY OF PRESENT ILLNESS Dryness; both eyes ; x several years; constantly; symptoms are moderate. Patient reports vision is stable in both eyes at distance and near. Denies flashes, floaters, and diplopia. Denies ocular pain. IMPRESSION / REPORT / PLAN #1 history of Graves no diplopia of evidence of optic neuropathy. plan art tears 6-8X daily ofr dry eyes #2 refractive error rx given #3 dry eyes art tears prn DIAGNOSIS #1 history of Graves #2 refractive error #3 dry eyes CDM Reports - EYEGEN Id: [id number] Status: Fnl documented in this encounter Plan of Treatment Not on file documented as of this encounter Visit Diagnoses Not on filedocumented in this encounter Additional Health Concerns Infection Onset Date Last Indicated Resolved Time MRSA Comment:No Historical Comment Imported in Epic 06/22/2014 06/22/2014 09/15/2019 7:[address] COVID19 Pending 02/12/2023 02/12/2023 02/12/2023 1 1:03 PM CDT COVID19 Pending 04/15/2023 04/15/2023 04/15/2023 8 :47 PM CDT COVID19 Pending 02/25/2024 02/25/2024 02/25/2024 7 :18 PM CDT Assessment Noted Time PHQ-9 Depression Total Score: 9 10/31/19 17 10:12 AM HUMAN SERVICES ASSISTANT documented as of this encounter Care Teams Plate Sensitizer Relationship Specialty Start Date End Date Saleem Call M.D. [address] [place] [phone] PCP - General 06/22/17 [facility] Relay Dispatcher 10/24/23 documented as of this encounter
--- OUTSIDE RECORDS SUMMARY | 2024-10-04 21:09 | XMS_ITS | Referral Summary ---
Author Organization [facility] Address [address] [place] [address] Care Team Providers Care Curriculum Development Coordinator Name Role Phone Saleem Call M.D. Primary Care Provider [phone] Source Comments Patient records contain information from all sites at [facility]. For routine questions regarding patient records, call [phone] during business hours, M-F 8:00 AM - 5:00 PM Central Time. Record requests for emergency care only can be directed to [phone] at any time.[facility] Encounters Date Type Department Care Team Description 08/26/2024 12:45 PM ELECTRICAL PANEL BUILDER Clinical Communication Virtual Review in [place], [place] [address] [place] [address] Pre-visit Intake 08/26/2024 1:30 PM ELECTRICAL PANEL BUILDER Virtual Visit Division of Endocrinology in [place], [place] [address] [place] [phone] Lona Cedillo M.D. Graves' Disease 08/25/2024 6:10 PM ELECTRICAL PANEL BUILDER - 08/25/2024 11:59 PM ELECTRICAL PANEL BUILDER Hospital Encounter Department of Laboratory Medicine in [address] [phone] Lona Cedillo M.D. Graves' Disease Discharge Disposition: Home or Self Care 08/06/2024 Orders Only Division of Endocrinology in [place], [place] [address] [place] [address] Lona Cedillo M.D. Graves' Disease (Primary Dx) 07/29/2024 Orders Only Division of Endocrinology in [place], [place] [address] [place] [address] Lona Cedillo M.D. Graves' Disease (Primary Dx) 07/15/2024 Orders Only [facility] PCP TH MNT Saleem Call M.D. Deficiency Estrogen Post Menopausal; Screening Mammogram Breast Cancer 07/10/2024 Orders Only Department of Family Medicine, [facility], in [address] [address] Peyton Reyes APRN, C.N.PSay Deficiency Vitamin D (Primary Dx) 07/09/2024 3:04 PM CDT - 07/09/2024 11:59 PM CDT Hospital Encounter Department of Laboratory Medicine in [address] [address] Saleem Call M.D. Hypovitaminosis D; Graves' Disease; Chronic Kidney Disease (CKD), Stage 3a Glomerular Filtration Rate (GFR) 45 To 59 (HCC) Discharge Disposition: Home or Self Care 07/09/2024 3:30 PM CDT Office Visit Department of Family Medicine, [facility], in [address] [address] Peyton Reyes APRN, C.N.P. Anxiety Generalized Disorder (Primary Dx); Chronic Pain Syndrome; Hypovitaminosis D; Deficiency Vitamin D Discharge Disposition: Home or Self Care from Last 3 Months Allergies Active Allergy Reactions Criticality Noted Date [...] (11/03/2019): Added automatically from request for surgery [id number] Stasis Ulcer With Varicose Vein Left 09/08/2019 10/24/2023 Acute On Chronic Diastolic ( Congestive) Heart Failure 09/07/2019 04/05/2023 Stasis Ulcer Varicose Vein Right 09/07/2019 10/24/2023 Urinary Tract Infection Site Not Specified 09/07/2019 01/27/2021 Ulcer Lower Limb 10/08/2017 03/22/2018 Ulcer Leg 02/15/2016 03/22/2018 Vascular (Lower Extremity) A nd Diabetic Ulcer NOS 06/14/2015 10/24/2023 Overview (05/19/2019): Bilateral Depressive Disorder 09/15/2011 07/22/20 19 Overview (01/30/2017): Depression Immunizations Immunization Administration Dates Next Due PCV20 10/24/2023(Deferred: Patient dec isi) RZV (SHINGRIX) 10/24/2023(Deferred: Patient dec isi) SARS-COV-2 (COVID-19) - MODE RNA (12 YEARS AND OLDER) Fall Seasonal 10/24/2023(Deferred: Patient decision) SARS-COV-2 (COVID-19) - PFIZ ER (Discontinued)(12 years or older) 09/12/2021,12/28/2020,11/18/2020 Td (Adult), adsorbed 06/21/1993 Td Preservative Free (TENIVA C, DECAVAC) 06/03/2003 Tdap 08/22/2018 influenza trivalent high dos e (HD)(PF) 10/24/2023(Deferred: Patient decision) Social History Tobacco Use Types Packs/Day Years Used Date Smoking Tobacco: Former Cigarettes Q uit: 03/22/1978 Smokeless Tobacco: Never Tobacco Cessation:Counseling Given: Not Answered Alcohol Use Standard Drinks/Week Comments Yes 0 (1 standard drink = 0.6 oz pure alcohol) social; 1 drink every few months [facility] [employer] Answer Date Recorded In the past 12 months has e [employer], gas, oil, or water Bundle It threatened to shut off services in your [...] any clubs o r organizations such as mormonism groups, unions, fraternal or athletic groups, or [...] Answer Date Recorded PHQ-2 Score 3 05/05/2024 [facility] - Occupational Stress Questionnaire Answer Date [...] your living situation today? I have a [facility] place to live 11/05/2023 Education Answer Date Recorded What is the highest level of school you have completed or the highest degree you have received? 12th grade 01/15/2020 Comments No Sex and Gender Information Value Date Recorded Sex Assigned at Female 11/05/2023 11:46 AM ELECTRICAL PANEL BUILDER Legal Sex Female 11:47 AM ELECTRICAL PANEL BUILDER Gender Identity Female 11/05/2023 11:46 AM ELECTRICAL PANEL BUILDER Sexual Orientation Straight 11/05/2023 11 :46 AM ELECTRICAL PANEL BUILDER Last Filed Vital Signs Vital Sign Reading [...] 04/15/2023 8:05 PM CDT Plan of Treatment Not on file Medical Devices Implanted Type Area Chef Instructor Device Identifier Shelf Expiration Date Model / Serial / Lot Hardware E.G. Pins/Screws/Jaron s Hardware e.g. pins/screws /rods Knee Description:Screws in left k nee. ACL repair. Trilogy-Screw 6.5x30 - Shepherd [id number] Implanted:Qty: 1 on 03/09/2011 Hardware e.g. pins/screws /rods [employer] Description:Device Manufactu rer - [employer]. Device Status Text - [id number]. Trilogy-Screw 6.5x40 - Shepherd [id number] Implanted:Qty: 1 on 03/09/2011 Hardware e.g. pins/screws /rods [employer] Description:Device Manufactu rer - [employer]. Device Status Text - [id number]. Hip Implant Hip Implant Right: Hip Zim-Liner Poly Xlpe 0 Deg 36x50 - Shepherd [id number] Implanted:Qty: 1 on 03/09/2011 Hip Implant Other/Legacy - See Implant Description [employer] Description:Device Manufactu rer - [employer]. Body Location - Other. Right. Device Status Text - HIP [id number]. Zim. Shell Tril W Holes 54 - Shepherd [id number] Implanted:Qty: 1 on 03/09/2011 Hip Implant Other/Legacy - See Implant Description [employer] Description:Device Manufactu rer - [employer]. Body Location - Other. Right. Device Status Text - HIP [id number]. [place]-Stem Paula 7 Hi - Shepherd [id number] Implanted:Qty: 1 on 03/09/2011 Hip Implant Other/Legacy - See Implant Description [employer] Description:Device Manufactu rer - [employer]. Body Location - Other. Right. Device Status Text - [id number] [id number]. J J Articul Darius Head 36 - 2.0 - Shepherd [id number] Implanted:Qty: 1 on 03/09/2011 Hip Implant Other/Legacy - See Implant Description [employer] Description:Device Manufactu rer - [employer]. Body Location - Other. Right. Device Status Text - HIP [id number]. Procedures Procedure Name Priority Date/Time Associated Diagnosis Comments THYROGLOBULIN MASS SPECTROMETRY, S Routine 08/25/2024 6:37 PM ELECTRICAL PANEL BUILDER THYROGLOBULIN, TM, REFLEX TO LC-MS/MS OR IMMUNOASSAY, S Routine 08/25/2024 6:37 PM ELECTRICAL PANEL BUILDER Graves' Disease 25-HYDROXYVITAMIN D2 AND D3, S [...] HCV PCR, S Routine 08/22/2018 11:35 AM ELECTRICAL PANEL BUILDER Screening Test Laboratory from Last 3 Months or Most Recently Relevant to Health Maintenance Results * (ABNORMAL) Thyroglobulin Mass Spectrometry (08/25/2024 6:37 PM ELECTRICAL PANEL BUILDER) Thyroglobulin, Pump And Still Operator., S 95(H) Athyrotic <0.2, Intact thyroid <=33 ng/mL 09/11/2024 1:51 PM ELECTRICAL PANEL BUILDER [facility] Interpretation Thyroglobulin (Tg) levels must be interpreted in the context of TSH levels, serial Tg measurements and radioiodine ablation status. Tg levels of > or = 10 ng/mL in athyrotic individuals on suppressive therapy indicate a significant (>25%) risk of clinically detectable recurrent papillary/folli cular thyroid cancer. 09/11/2024 1:51 PM ELECTRICAL PANEL BUILDER [facility] Comment: ----ADDITIONAL INFORMATION---- PLEASE NOTE: Flagging [...] developed and its performance characteristics determined by [facility] in a manner consistent with CLIA requirements. This test has not been cleared or approved by the U.S. Food and Drug Administration. Blood 08/25/2024 6:37 PM ELECTRICAL PANEL BUILDER 08/27/2024 2:10 PM ELECTRICAL PANEL BUILDER Lona Cedillo M.D. LAB BLOOD NON ADD-ON Fin al Result Performing Organization Address City/[facility]/ZIP Co de Phone Number [facility] [address] [place] [address] [place] [address] [place] [address] * (ABNORMAL) Thyroglobulin, Tumor Marker Reflex to LC-MS/MS or Immunoassay (08/25/2024 6:37 PM ELECTRICAL PANEL BUILDER) Only the most recent of2 resultswithin the time period is included. Thyroglobulin Antibody, S 12(H) <1.8 IU/mL 08/27/2024 9:17 AM ELECTRICAL PANEL BUILDER [facility] Comment: Thyroglobulin Antibody > or = 1.8 [...] method is an immunoenzymatic assay manufactured by [employer] and performed on the [employer] DXI 800. Values obtained from different assay methods or kits may be different and cannot be used interchangeably. The results cannot be interpreted as absolute evidence for the presence or absence of malignant disease. Blood (Blood, Venous) 08/25/2024 6:37 PM ELECTRICAL PANEL BUILDER 08/27/2024 8:02 AM ELECTRICAL PANEL BUILDER Lona Cedillo M.D. LAB BLOOD NON ADD-ON Fin al Result [facility] [address] [place] [address] [place] [address] * (ABNORMAL) Vitamin D, Immunoassay, Total, Serum (07/09/2024 3:13 PM CDT) Pathologist [facility] Vitamin D, Immunoassay, Total, S 9(L) 20 - 80 ng/mL 07/09/2024 9:42 PM CDT [facility] Comment: Interpretation: <10 ng/mL (severe deficiency) Optimum levels within the healthy population are 20-50, patients with bone disease may benefit from high levels within this range Blood (Blood, Venous) 07/09/2024 3:13 PM CDT 07/09/2024 8:49 PM CDT us Saleem Call M.D. LAB BLOOD ADD-ON Final Re sult Performing Organization Address [facility] de Phone Number [facility] [address] [place] [address] [place] [address] * Thyrotropin Receptor Antibody (07/09/2024 3:13 PM CDT) [facility] Thyrotropin Receptor Ab, S <1.10 0.00 - 1.75 IU/L 07/09/2024 9:30 PM CDT [facility] Comment: ----ADDITIONAL INFORMATION---- At a decision limit of 1.75 IU/L, this assay has 97% sensitivity and 99% specificity for detection of Graves' disease. In healthy individuals and in patients with thyroid disease without diagnosis of Graves' disease, the upper limit of anti-TSHR values are 1.22 IU/L and 1.58 IU/L, respectively (97.5th percentiles). Blood (Blood, Venous) 07/09/2024 3:13 PM CDT 07/09/2024 8:47 PM CDT us Lona Cedillo M.D. LAB BLOOD ADD-ON Final R esult Performing Organization Address [facility]/ZIP Co de Phone Number [facility] [address] [place] [address] [facility] [address] [place] [address] * (ABNORMAL) 25-Hydroxyvitamin D2 and D3 (07/09/2024 3:13 PM CDT) 25-Hydroxy D2 <4.0 ng/mL 07/12/2024 1:19 AM CDT SDS 25-Hydroxy D3 11 ng/mL 07/12/2024 1:19 AM CDT [facility] 25-Hydroxy D Total 11(L) ng/mL 2023 1:19 AM CDT [facility] Comment: Interpretation: 10-19 ng/mL (mild to moderate deficiency) ----REFERENCE VALUE---- 25-HYDROXY D TOTAL (D2+D3) Optimum levels in the healthy population are 20-50. ----ADDITIONAL INFORMATION---- This test was developed and its performance characteristics determined by [facility] in a manner consistent with CLIA requirements. This test has not been cleared or approved by the U.S. Food and Drug Administration. Blood (Blood, Venous) 07/09/2024 3:13 PM CDT 07/10/2024 8:02 AM CDT us Lona Cedillo M.D. LAB BLOOD ADD-ON Final R esult [facility] [address] [place] [address] [facility] [address] [place] [address] [address] [place] [facility] [place] [address] * S-TSH (Thyroid-Stimulating Hormone - Sensitive) (07/09/2024 3:13 PM CDT) TSH, Sensitive 0.3 0.3 - 4.2 mIU/L 07/09/2024 3:49 PM CDT CNFL Blood (Blood, Venous) 07/09/2024 3:13 PM CDT 07/09/2024 3:15 PM CDT us Lona Cedillo M.D. LAB BLOOD ADD-ON Final R esult [facility] [address] [place] [address], [facility] CNFL in [address] [address] * T4 (Thyroxine), Free (07/09/2024 3:13 PM CDT) T4 (Thyroxine), Free, P 1.1 0.9 - 1.7 ng/dL 07/09/2024 7:50 PM CDT [facility] Blood (Blood, Venous) 07/09/2024 3:13 PM CDT 07/09/2024 6:59 PM CDT us Lona Cedillo M.D. LAB BLOOD ADD-ON Final R esult Performing Organization Address City/[facility]/ZIP Co de Phone Number [facility] [address] [place] [address], [facility] RDWG in [address] [address] * (ABNORMAL) Magnesium (07/09/2024 3:13 PM CDT) Magnesium, P 1.4(L) 1.7 - 2.3 mg/dL 07/09/2024 3:32 PM CDT [facility] Blood (Blood, Venous) 07/09/2024 3:13 PM CDT 07/09/2024 3:15 PM CDT us Lona Cedillo M.D. LAB BLOOD ADD-ON Final R esult [facility] [address] [place] [address], [place] CNFL in [address] [address] * (ABNORMAL) Comprehensive Metabolic Panel (02/25/2024 7:30 PM CDT) [facility] Potassium, P 4.1 3.6 - 5.2 mmol/L [...] P.A. LAB BLOOD ADD-ON F inal Result [facility]NOTE 3[facility] [address] [place] [address], [facility] [place] [address] * HCV Ab Scrn w/Reflex to HCV PCR, Serum (08/22/2018 11:35 AM ELECTRICAL PANEL BUILDER) HCV Ab Screen, S Nonreactive Nonreactive 08/23/2018 10:49 AM ELECTRICAL PANEL BUILDER [facility] Blood (Blood, Venous) 08/22/2018 11:35 AM ELECTRICAL PANEL BUILDER 08/22/2018 9:50 PM ELECTRICAL PANEL BUILDER Narrative [facility] - 08/23/2018 10:49 AM ELECTRICAL PANEL BUILDER Specimen Information: Specimen ID: [id number] Specimen Type: Blood Specimen Collection Start Date: 08/22/2018 11:35 AM Specimen Received Date: 08/22/2018 9:50 PM Specimen ID: [id number] Specimen Type: Blood Specimen Collection Start Date: 08/22/2018 11:35 AM Specimen Received Date: 08/22/2018 9:50 PM us Saleem Call M.D. LAB MICROBIOLOGY - BLOOD ORDERABLES Final Result [facility] [address] [place] [address] from Last 3 Months or Most Recently Relevant to Health Maintenance Insurance A[employer] Advance Directives For more information, please contact: [phone] Documents on File Type Date Recorded Patient Pot Filler Expl anation Advance Directives 09/06/2019 7:52 PM [...] File Name Relationship Healthcare Agent Relationship Communication [facility] Care Agent Care Teams Curriculum Development Coordinator Relationship Specialty Start Date End Date Saleem Call M.D. [address] [place] [phone] PCP - General 06/22/17 [employer] Varitype Operator 10/24/23
[2024-10-04 21:12] LABS: PCR FLU A Negative PCR FLU A (Negative); PCR FLU B Negative PCR FLU B (Negative); PCR RSV Negative PCR RSV (Negative); SARS PCR* Negative SARS-CoV-2 (Negative)
[2024-10-04 21:23] LABS: TSH With Reflex to FT4* 0.046 uIU/mL (0.270-4.200)
[2024-10-04] MEDS: ACETAMINOPHEN 500 MG TABLET 1000 MG PO (21:24)
[2024-10-04] MEDS: FUROSEMIDE 10 MG/ML inj 40 MG IVP (21:24)
[2024-10-04 21:50] LABS: Appearance Urine Slightly Cloudy (Clear); Bilirubin Urine Negative (Negative); Blood Urine 1+ (Negative); Color Urine Yellow (Yellow); Glucose Urine Negative (Negative); Ketones Urine Negative (Negative); Leukocyte Esterase Urine 2+ (Negative); Nitrite Urine Positive (Negative); Protein Urine 1+ (Negative); Urobilinogen Urine 0.2 (0.2-1.0); pH Urine 6.5 (5.0-8.5)
[2024-10-04 21:50] LABS: Free T4 Free Thyroxine* 1.53 ng/dL (0.70-1.85)
[2024-10-04 22:40] LABS: Bacteria Urine Many; WBC Clumps Urine Many; WBC Urine >100 (0-5)
--- NOTE | 2024-10-04 23:28 | PM.IMHP1 ---
Hospitalist- H&P: HPI History of Present Illness Date Seen: 10/04/24 Chief complaint: weakness sob Narrative: Zuleyma Samuel is a 68 year old female who presented to the ER today from home for weakness and acute on chronic dyspnea. She's noted weakness since a CVA last year (doesn't feel that she fully regained strength after her rehab stay). Has noted worsening hypoxia at home (wears supplemental oxygen), saturations can be as low as 70%. No CP. Intermittent cough. Hasn't yet seen Pulmonology. Has been holding her Furosemide and Torsemide for the past few days 2/2 weakness/inability to ambulate and get to the bathroom. + weight gain recently. Today, she was so weak she couldn't get out of her chair, so friends called 911. She had O2 saturations in the 60% upon EMS arrival, was in afib with RVR (history of afib, on Carvedilol and Apixaban). ER: - evidence of fluid overload on CXR, possible underlying infiltrate; given Ceftriaxone and Azithromycin - concern for UTI on UA - WBC 9 with PMN predominance - O2 saturations 89-90% on 6L NC initially, titrated down to 2L NC - BNP 1790 (unknown baseline), given 40mg IV Lasix - EKG a fib (rate 90s), negative troponin Patient admitted for acute hypoxic respiratory failure, clinical CHF exacerbation, weakness with current unsafe living conditions (unable to safely complete ADLs). Review of Systems Status of ROS: Reports: 10 or more systems reviewed and unremarkable except as noted in History and below Narrative: - thinks she's gained 11 pounds in the last few weeks [facility] Medical History (Updated 10/05/24 @ 00:42 by Tasneem Ding MD) CHF (congestive heart failure) ?I50.9 - Heart failure, unspecified (ICD-10) CVA (cerebral vascular accident) ?I63.9 - Cerebral infarction, unspecified (ICD-10) Respiratory failure with hypoxia (02/13/23) ?J96.91 - Respiratory failure, unspecified with hypoxia (ICD-10) Graves disease (09/15/11) ?E05.00 - Thyrotoxicosis with diffuse goiter without thyrotoxic crisis or storm (ICD-10) Depression, major, recurrent, 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) ?F33.0 - Major depressive disorder, recurrent, mild (ICD-10) CKD stage 3a, GFR 45-59 ml/min (11/16/22) ?N18.31 - Chronic kidney disease, stage 3a (ICD-10) Unspecified atrial fibrillation (12/12/10) ?I48.91 - Unspecified atrial fibrillation (ICD-10) Generalized anxiety disorder (05/19/19) ?F41.1 - Generalized anxiety disorder (ICD-10) Surgical History (Updated 10/05/24 @ 00:11 by Tasneem Ding MD) History of knee replacement ?Z96.659 - Presence of unspecified artificial knee joint (ICD-10) S/P hip replacement ?Z96.649 - Presence of unspecified artificial hip joint (ICD-10) H/O shoulder replacement ?Z96.619 - Presence of unspecified artificial shoulder joint (ICD-10) Social History (Updated 10/05/24 @ 00:23 by Tasneem Ding MD) Narrative: Lives alone in [place], [place]. Struggling with ADLs. Nonsmoker, no ETOH. Son Levon would be MDM if needed. CPR in the setting of witnessed arrest only. Smoking Status: Never smoker Do you use any of these nicotine containing products: None Second hand tobacco smoke exposure: No How often do you have a drink containing alcohol: never AUDIT-C Alcohol total score: 0 Non-prescribed substance use: denies use Meds Home Medications and Allergies Home Medications ?Medication ?Instructions ?Recorded ?Confirmed ?Type apixaban 5 mg tablet 5 mg PO Q12H 10/04/24 10/04/24 History carvedilol 6.25 mg tablet 6.25 mg PO Q12H 10/04/24 10/04/24 History gabapentin 300 mg capsule 300 mg PO TID 10/04/24 10/04/24 History gabapentin 600 mg tablet mg DAILY 10/04/24 History oxycodone 5 mg tablet 5 mg PO Q6H PRN 10/04/24 10/04/24 History spironolactone 25 mg tablet 25 mg PO DAILY 10/04/24 10/04/24 History torsemide 20 mg tablet 20 mg PO DAILY 10/04/24 10/04/24 History Home Medication Comments: Has been holding spironolactone and torsemide secondary to polyuria Allergies Allergy/AdvReac Type Severity Reaction Status Date / Time adhesive tape Allergy Unknown Verified 10/04/24 18:10 Exam Narrative: Exam Narrative: GEN: Alert and oriented, answering questions appropriately HEENT: EOMIs bilaterally, no scleral icterus CV: Irregularly irregular, harsh systolic murmur heard best at LSB R: LCTA bilaterally without concerning wheezing Ext: wwp, 1-2+ edema Skin: No concerning skin lesions or rashes on exposed skin Neuro: Seems to have mild R facial droop, limited exam otherwise nonfocal Psych: Appropriate Const: Vital Signs, click to edit/add: Vital Signs - 24 hr 10/04/24 18:13 10/04/24 18:40 10/04/24 18:45 Temperature 98.4 F Pulse Rate 107 H 107 H Pulse Rate [Pulse Oximeter] 128 H Respiratory Rate 32 H Blood Pressure Blood Pressure [Ri ght Upper Arm] 127/69 Pulse Oximetry 96 92 91 Oxygen Delivery Me thod Nasal Cannula Oxygen Flow Rate 6 10/04/24 18:58 10/04/24 18:58 10/04/24 19:00 Temperature Pulse Rate 102 H Pulse Rate [Pulse Oximeter] Respiratory Rate Blood Pressure Blood Pressure [Ri ght Upper Arm] Pulse Oximetry 93 93 93 Oxygen Delivery Me thod Nasal Cannula Oxygen Flow Rate 2 10/04/24 19:01 10/04/24 19:15 10/04/24 19:30 Temperature Pulse Rate 110 H 132 H 111 H Pulse Rate [Pulse Oximeter] Respiratory Rate Blood Pressure 120/73 Blood Pressure [Ri ght Upper Arm] Pulse Oximetry 94 91 92 Oxygen Delivery Me thod Oxygen Flow Rate 10/04/24 19:31 10/04/24 19:45 10/04/24 20:00 Temperature Pulse Rate 109 H 113 H 105 H Pulse Rate [Pulse Oximeter] Respiratory Rate Blood Pressure 133/83 Blood Pressure [Ri ght Upper Arm] Pulse Oximetry 92 91 89 Oxygen Delivery Me thod Oxygen Flow Rate 10/04/24 20:15 10/04/24 21:21 10/04/24 21:23 Temperature Pulse Rate 123 H 104 H 100 Pulse Rate [Pulse Oximeter] Respiratory Rate Blood Pressure 140/75 H Blood Pressure [Ri ght Upper Arm] Pulse Oximetry 89 93 94 Oxygen Delivery Me thod Oxygen Flow Rate 10/04/24 21:30 10/04/24 21:32 10/04/24 21:45 Temperature Pulse Rate 101 H 101 H 108 H Pulse Rate [Pulse Oximeter] Respiratory Rate Blood Pressure 131/73 Blood Pressure [Ri ght Upper Arm] Pulse Oximetry 93 95 96 Oxygen Delivery Me thod Oxygen Flow Rate Hospitalist - H&P: Result Labs Labs: Short CBC 10/04/24 Range/Units 20:11 WBC 9.68 (4.50-11.00) K/uL Hgb 11.9 L (12.0-16.0) gm/dL Hct 41.5 (33.0-51.0) % Plt Count 100 L (140-440) K/uL BMP 10/04/24 20:11 Sodium 144 Potassium 4.1 Chloride 97 Carbon Dioxide 39 H BUN 18 Creatinine 0.8 Glucose 105 Calcium 9.3 Cardiac Enzymes 10/04/24 Range/Units 20:11 Troponin I 0.03 (0.01-0.04) ng/mL Liver Function 10/04/24 Range/Units 20:11 Total Bilirubin 0.8 (0.1-1.5) mg/dL AST 17 (12-35) U/L ALT 13 (4-35) U/L Alkaline Phosphatase 78 (40-150) U/L Albumin 3.9 (3.3-5.0) g/dL Urine 10/04/24 Range/Units 21:28 Urine Color Yellow (Yellow) Urine Appearance Slightly Cloudy A (Clear) Urine pH 6.5 (5.0-8.5) Ur Specific [place] 1.020 (1.000-1.030) Urine Protein 1+ A (Negative) Urine Glucose (UA) Negative (Negative) Assessment and Plan Assessment and plan (1) Respiratory failure with hypoxia: Problem comment: - likely multifactorial: Appears to have a clinical CHF exacerbation, also may have mild community-acquired pneumonia - presumably has JEAN as well - supplemental oxygen, monitor closely for hypercarbia Status: Acute (2) CHF (congestive heart failure): Problem comment: - Unclear baseline, certainly seems to be fluid overloaded - receive 40 mg of IV Lasix in ER 10/04/24, will give another dose of IV Lasix 10/05, then returned to home doses of torsemide and spironolactone - TTE to evaluate current EF, murmur Status: Acute (3) Unspecified atrial fibrillation: Problem comment: - Persistent, on apixaban and carvedilol - was in RVR upon arrival to the ER, this resolved during stay/resuscitation - continue home medications with prn IV metoprolol for of ER Status: Acute (4) CVA (cerebral vascular accident): Problem comment: - R parietal-occipital region, 02/2023 - was found down at home, GCS of 3, intubated Status: Acute Plan - per above - diuresis, TTE, therapies - Apixaban for ppx - appropriate for inpatient stay given degree of hypoxia, CHF exacerbation requiring IV diuresis, a fib with RVR requiring monitoring and management
[2024-10-05] VITALS (19 sets, daily range): BP systolic 131–147; BP diastolic 74–98; PULSE 82–124; RESP 14–23; TEMP 36.1–36.7; O2SAT 83–96
[2024-10-05] MEDS: cefTRIAXone 1 GM in 0.9 % SODIUM CHLORIDE Mini-bag 100 ML IVPB (00:25)
[2024-10-05] MEDS: APIXABAN 5 MG TABLET PO (00:56)
[2024-10-05] MEDS: GABAPENTIN 300 MG CAPSULE 600 MG PO (00:56)
[2024-10-05] MEDS: AZITHROMYCIN 500 MG in 0.9 % SODIUM CHLORIDE 250 ml 250 ML 255 MG IVPB (00:56)
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
[2024-10-05 07:09] LABS: HCO3 VBG 43 mmol/L (21-28); pH VBG 7.264 (7.32-7.43)
[2024-10-05 07:11] LABS: PCO2 VBG 96 mmHG (40-50)
[2024-10-05 07:28] LABS: Basophils Absolute Auto 0.02 K/uL (0.00-0.30); Basophils Percent Auto 0.2 % (0.0-3.0); Eosinophils Absolute Auto 0.09 K/uL (0.00-0.50); Hematocrit 42.1 % (33.0-51.0); Hemoglobin* 11.9 gm/dL (12.0-16.0); Immature Granulocytes Abs Auto 0.02 K/uL (0.00-0.30); Immature Granulocytes Pct Auto 0.2 %; Lymphocytes Percent Auto 8.8 % (20-44); Mean Corpuscular HGB Conc 28 gm/dL (32-36); Mean Corpuscular Hemoglobin 29 pg (26-34); Mean Corpuscular Volume 103 fL (80-100); Monocytes Percent Auto 8.9 % (0.0-11.0); Neutrophils Percent Auto 80.9 % (42.0-72.0); Platelet Count* 105 K/uL (140-440); RDW Coefficient of Variation % 12.8 % (11.5-15.5); Red Blood Count 4.08 m/uL (4.00-5.20); White Blood Count* 8.86 K/uL (4.50-11.00)
[2024-10-05 07:38] LABS: Slide Review Reflex No
[2024-10-05 07:44] LABS: Albumin* 3.7 g/dL (3.3-5.0); Chloride* 97 mmol/L (96-114); Sodium* 144 mmol/L (135-149)
[2024-10-05 07:45] LABS: Potassium* 4.1 mmol/L (3.6-5.1)
[2024-10-05 07:47] LABS: Alanine Aminotransferase* 12 U/L (4-35); Alkaline Phosphatase* 68 U/L (40-150); Aspartate Amino Transferase* 21 U/L (12-35); Bilirubin Total* 0.6 mg/dL (0.1-1.5); Blood Urea Nitrogen* 22 mg/dL (7-30); Calcium* 8.9 mg/dL (8.4-10.6); Creatinine* 0.9 mg/dL (0.5-1.5); Est. Creatinine Clearance* 54.32; Estimated Glomerular Filt Rate 70 ml/min; Glucose* 114 mg/dL (60-115); Magnesium* 1.1 mg/dL (1.5-2.6); Total Protein* 6.7 g/dL (6.0-8.3)
--- NOTE | 2024-10-05 07:53 | P.IMPN_ITS ---
Progress Note: A&P Assessment and plan (1) Respiratory failure with hypoxia: Problem details: - likely multifactorial: Appears to have a clinical CHF exacerbation, also may have mild community-acquired pneumonia - presumably has JEAN as well - supplemental oxygen, monitor closely for hypercarbia 10/05 was initiated on ceftriaxone/azithromycin on admission - discontinued 10/05, changed to vancomycin and Zosyn. Lactate 0.5, procalcitonin 0.05. Triple swab negative. MRSA ordered. CXR on admission shows congestive heart failure with diffuse interstitial edema. Will consider CT scan if new or worsening symptoms or no improvement, otherwise when stable. Changing to IV diuresis. Suspect this could be related to CHF and UTI rather than CAP. BC and UC pending Status: Acute (2) Hypercapnia: Problem details: 10/05: -VBG pH 7.264, pCO2 96, PO2 104, HC03 43 -obtunded -placed on BiPAP -responding, recheck VBG 77, monitoring VBGs -respiratory therapy for management Status: Acute (3) CHF (congestive heart failure): Problem details: - history of chronic diastolic heart failure, June 2018 LVEF of 55%, followed by [facility] - Unclear baseline, certainly seems to be fluid overloaded - receive 40 mg of IV Lasix in ER 10/04/24, will give another dose of IV Lasix 10/05, then returned to home doses of torsemide and spironolactone - TTE to evaluate current EF, murmur 10/05: Holding home torsemide and spironolactone. Lasix 40 mg IV b.i.d. Strict I&Os, daily weights. Echo deferred to 10/06 Status: Acute (4) Unspecified atrial fibrillation: Problem details: - Persistent, on apixaban and carvedilol - was in RVR upon arrival to the ER, this resolved during stay/resuscitation - continue home medications with prn IV metoprolol for of ER 10/05: Holding home carvedilol while on BiPAP. Scheduled metoprolol 5 mg IV q.6 with parameters. Holding home apixiban, starting enoxaparin 120 bid Status: Acute (5) CVA (cerebral vascular accident): Problem details: - R parietal-occipital region, 02/2023 - was found down at home, GCS of 3, intubated Status: Acute (6) CKD stage 3a, GFR 45-59 ml/min: Problem details: -creatinine 0.9, monitor Status: Acute (7) Chronic pain syndrome: Problem details: -in reviewing [facility] records, on gabapentin 300 mg t.i.d. + 600 mg at at bedtime + 300 mg p.r.n. - holding -oxycodone - holding -UDS ordered as obtunded, all negative Status: Acute (8) Graves disease: Problem details: - follows with [facility], not currently on any medications, TSH 0.046 Status: Acute (9) Generalized anxiety disorder: Problem details: -gabapentin - holding Status: Acute (10) Generalized weakness: Problem details: -chronic. Will have PT/OT assess when stable Status: Acute (11) Hypomagnesemia: Problem details: -magnesium 1.1, given 2 g IV given respiratory distress, recheck in a.m. Status: Acute (12) UTI (urinary tract infection): Problem details: 10/05 -suspected given UA results. History of same -UC pending -discontinue ceftriaxone/azithromycin -Zosyn and vancomycin started Status: Acute Time Spent With Patient Total time spent: Total time spent caring for the patient today was 120 minutes critical care time. This includes time spent for the visit reviewing the chart, time spent during the visit, time spent after the visit and documentation and planning in coordination of care. Subjective Date Seen: 10/05/24 Interval history: Critical lab reported at 710 this morning. VBG PCO2 96. Immediately assessing patient, she is obtunded, does not open eyes with verbal cue and only groans. Deep sternal rub provokes only a groan as well. Bilateral pupils pinpoint. Respirations even, without dyspnea. Tachycardic. Afebrile. Patient is placed on BiPAP and transitioned to critical care unit. On reexamination, following BiPAP therapy, patient awakens to name. Recalls a similar event when she had a UTI in the past. All previous cares have been at [facility]. Exam Narrative: Exam Narrative: PHYSICAL EXAM General: Obtunded, groans to sternal rub only HEENT: Normocephalic, atraumatic, sclera white, pinpoint pupils Cardiovascular: Tachycardia Pulmonary: Inadequate exam 1 while obtunded. No dyspnea on 3 L Abdominal: Soft, obese, nondistended, NTTP Neurological: Obtunded Extremities: No gross joint deformity or swelling. AROMI. Neurovascularly intact Skin: Warm, dry. Const: Vital Signs, click to edit/add: Vital Signs - 24 hr 10/04/24 18:13 10/04/24 18:40 10/04/24 18:45 Temperature 98.4 F Pulse Rate 107 H 107 H Pulse Rate [Pulse Oximeter] 128 H Respiratory Rate 32 H Blood Pressure Blood Pressure [Le ft Arm] Blood Pressure [Ri ght Upper Arm] 127/69 Pulse Oximetry 96 92 91 Oxygen Delivery Me thod Nasal Cannula Oxygen Flow Rate 6 10/04/24 18:58 10/04/24 18:58 10/04/24 19:00 Temperature Pulse Rate 102 H Pulse Rate [Pulse Oximeter] Respiratory Rate Blood Pressure Blood Pressure [Le ft Arm] Blood Pressure [Ri ght Upper Arm] Pulse Oximetry 93 93 93 Oxygen Delivery Me thod Nasal Cannula Oxygen Flow Rate 2 10/04/24 19:01 10/04/24 19:15 10/04/24 19:30 Temperature Pulse Rate 110 H 132 H 111 H Pulse Rate [Pulse Oximeter] Respiratory Rate Blood Pressure 120/73 Blood Pressure [Le ft Arm] Blood Pressure [Ri ght Upper Arm] Pulse Oximetry 94 91 92 Oxygen Delivery Me thod Oxygen Flow Rate 10/04/24 19:31 10/04/24 19:45 10/04/24 20:00 Temperature Pulse Rate 109 H 113 H 105 H Pulse Rate [Pulse Oximeter] Respiratory Rate Blood Pressure 133/83 Blood Pressure [Le ft Arm] Blood Pressure [Ri ght Upper Arm] Pulse Oximetry 92 91 89 Oxygen Delivery Me thod Oxygen Flow Rate 10/04/24 20:15 10/04/24 21:21 10/04/24 21:23 Temperature Pulse Rate 123 H 104 H 100 Pulse Rate [Pulse Oximeter] Respiratory Rate Blood Pressure 140/75 H Blood Pressure [Le ft Arm] Blood Pressure [Ri ght Upper Arm] Pulse Oximetry 89 93 94 Oxygen Delivery Me thod Oxygen Flow Rate 10/04/24 21:30 10/04/24 21:32 10/04/24 21:45 Temperature Pulse Rate 101 H 101 H 108 H Pulse Rate [Pulse Oximeter] Respiratory Rate Blood Pressure 131/73 Blood Pressure [Le ft Arm] Blood Pressure [Ri ght Upper Arm] Pulse Oximetry 93 95 96 Oxygen Delivery Me thod Oxygen Flow Rate 10/04/24 22:10 10/04/24 22:10 10/04/24 23:00 Temperature 98.1 F Pulse Rate Pulse Rate [Pulse Oximeter] 106 H 106 H Respiratory Rate 22 22 22 Blood Pressure Blood Pressure [Le ft Arm] 152/85 H Blood Pressure [Ri ght Upper Arm] Pulse Oximetry 93 93 Oxygen Delivery Me thod Nasal Cannula Nasal Cannula Oxygen Flow Rate 3 3 10/04/24 23:00 10/05/24 03:00 Temperature 98.1 F Pulse Rate 107 H Pulse Rate [Pulse Oximeter] 103 H Respiratory Rate 20 Blood Pressure Blood Pressure [Le ft Arm] 134/82 Blood Pressure [Ri ght Upper Arm] Pulse Oximetry 92 Oxygen Delivery Me thod Nasal Cannula Oxygen Flow Rate 3 Labs Labs: Laboratory Results - last 24 hr 10/04/24 10/04/24 10/05/24 20:11 21:28 05:57 WBC 9.68 8.86 RBC 4.03 4.08 Hgb 11.9 L 11.9 L Hct 41.5 42.1 MCV 103 H 103 H MCH 30 29 MCHC 29 L 28 L RDW Coeff of Josefina 12.8 12.8 Plt Count 100 L 105 L Neut % (Auto) 83.3 H 80.9 H Lymph % (Auto) 7.6 L 8.8 L [place] % (Auto) 7.7 8.9 Eos % (Auto) 0.8 1.0 Baso % (Auto) 0.3 0.2 Neut # (Auto) 8.10 H 7.20 H Lymph # (Auto) 0.70 L 0.80 L [place] # (Auto) 0.70 0.80 Eos # (Auto) 0.08 0.09 Baso # (Auto) 0.03 0.02 Abs Immat Gran (auto) 0.03 0.02 Imm/Tot Granulo (auto) 0.3 0.2 VBG pH 7.264 L VBG pCO2 96 H* VBG pO2 104.0 H VBG HCO3 43 H Sodium 144 144 Potassium 4.1 4.1 Chloride 97 97 Carbon Dioxide 39 H Anion Gap 7 BUN 18 Creatinine 0.8 0.9 Estimated Creat Clear 54.32 Estimated GFR 80 70 Glucose 105 Lactate 1.0 Calcium 9.3 Total Bilirubin 0.8 AST 17 ALT 13 Alkaline Phosphatase 78 Troponin I 0.03 NT-Pro-B Natriuret Pep 1790 Total Protein 6.8 Albumin 3.9 3.7 TSH 0.046 L Free T4 1.53 Urine Color Yellow Urine Appearance Slightly Cloudy A Urine pH 6.5 Ur Specific [place] 1.020 Urine Protein 1+ A Urine Glucose (UA) Negative Urine Ketones Negative Urine Blood 1+ A Urine Nitrite Positive A Urine Bilirubin Negative Urine Urobilinogen 0.2 Ur Leukocyte Esterase 2+ A Urine RBC 5-10 A Urine WBC >100 A Urine WBC Clumps Many A Ur Squamous Epith Cells None Urine Bacteria Many A Ur Drug Screen Comment See Note SARS-CoV-2 (PCR) Negative SARS-CoV-2 Influenza Type A (PCR) Negative PCR FLU A Influenza Type B (PCR) Negative PCR FLU B RSV (PCR) Negative PCR RSV Lab Acknowledgement 10/05/24 07:37 WBC RBC Hgb Hct MCV MCH MCHC RDW Coeff of Josefina Plt Count Neut % (Auto) Lymph % (Auto) [place] % (Auto) Eos % (Auto) Baso % (Auto) Neut # (Auto) Lymph # (Auto) [place] # (Auto) Eos # (Auto) Baso # (Auto) Abs Immat Gran (auto) Imm/Tot Granulo (auto) VBG pH VBG pCO2 VBG pO2 VBG HCO3 Sodium Potassium Chloride Carbon Dioxide Anion Gap BUN Creatinine Estimated Creat Clear Estimated GFR Glucose Lactate Calcium Total Bilirubin AST ALT Alkaline Phosphatase Troponin I NT-Pro-B Natriuret Pep Total Protein Albumin TSH Free T4 Urine Color Urine Appearance Urine pH Ur Specific [place] Urine Protein Urine Glucose (UA) Urine Ketones Urine Blood Urine Nitrite Urine Bilirubin Urine Urobilinogen Ur Leukocyte Esterase Urine RBC Urine WBC Urine WBC Clumps Ur Squamous Epith Cells Urine Bacteria Ur Drug Screen Comment SARS-CoV-2 (PCR) Influenza Type A (PCR) Influenza Type B (PCR) RSV (PCR) Lab Acknowledgement Test Added
[2024-10-05 07:54] LABS: Amphetamine Screen Urine Negative (Negative); Barbiturate Screen Urine Negative (Negative); Benzodiazepines Screen Urine Negative (Negative); Cannabinoid Screen Urine Negative (Negative); Cocaine Screen Urine Negative (Negative); Methadone Screen Urine Negative (Negative); Methamphetamines Screen Urine Negative (Negative); Opiate Screen Urine Negative (Negative); Oxycodone Screen Urine Negative (Negative); Phencyclidine Screen Urine Negative (Negative); Tricyclic Antidepressant Urine Negative (Negative)
[2024-10-05 07:54] LABS: Anion Gap 7 mEq/L (7-15); Carbon Dioxide* 40 mmol/L (20-32)
[2024-10-05 07:58] LABS: Procalcitonin* 0.05 ng/mL (<0.50)
[2024-10-05 08:16] LABS: Lactate* 0.5 mmol/L (0.5-1.9)
[2024-10-05] MEDS: FUROSEMIDE 10 MG/ML inj 40 MG IVP ×2 (08:29→14:11)
[2024-10-05] MEDS: METOPROLOL TARTRATE 1 MG/ML inj 5 MG IVP ×3 (08:46→21:04)
[2024-10-05] MEDS: SODIUM CHLORIDE 0.9 % (FLUSH) 10 ML SYRINGE 5 ML IVF ×2 (08:47→21:04)
[2024-10-05] MEDS: MAGNESIUM IV 2 GM/50 ML PIGGYBACK IVPB (08:52)
[2024-10-05] MEDS: PIPERACILLIN/TAZOBACTAM 3.375 GM in 0.9 % SODIUM CHLORIDE Mini-bag 100 ML IVPB ×3 (09:33→21:04)
[2024-10-05] MEDS: ENOXAPARIN 120 MG/0.8 ML INJ SUBCUT ×2 (09:33→21:03)
--- NOTE | 2024-10-05 09:48 | REH.OT ---
OT orders received, and appreciated. Per communication from Physical therapy, RN indicating Zuleyma is not medically ready for OT evaluation this morning. Will hold at this time and resume efforts later today vs Sunday pending appropriateness.
[2024-10-05 10:04] LABS: HCO3 VBG 45 mmol/L (21-28); PO2 VBG 32.5 mmHG (25-47); pH VBG 7.378 (7.32-7.43)
[2024-10-05 10:07] LABS: PCO2 VBG 77 mmHG (40-50)
[2024-10-05] MEDS: VANCOMYCIN 1.75 GM/350 ML 1.75 GM/350 ML PIGGYBACK IVPB (10:20)
--- NOTE | 2024-10-05 13:47 | REH.PT ---
Orders received. Nsg asking to hold PT eval today due to change in medical status. Will check again tomorrow.
[2024-10-05] MEDS: PERFLUTREN LIPID MICROSPHERES 2 ML VIAL IVP (13:50)
[2024-10-05 15:11] LABS: HCO3 VBG 45 mmol/L (21-28); PO2 VBG 33.8 mmHG (25-47); pH VBG 7.479 (7.32-7.43)
[2024-10-05 15:15] LABS: PCO2 VBG 61 mmHG (40-50)
--- NOTE | 2024-10-05 19:03 | PC.NURSE ---
Pt changed to unit status early this morning. Pt placed on Bipap see EMR for settings and adjustments. Pt disoriented and confused most of shift. Pt?s BP WNL. Pt?s pulse 70?s-110-Pt in Afib (Chronic). Pt afebrile. [place] catheter was placed this am. BiPap removed Q2H ice chips/mouth swabs offered at these times.Pt is NPO. Pt?s oxygen saturations on 2 liters would not maintain more than one to two minutes. Towards end of shift around 17 Pt was alert and Bipap removed, and 2 Liters placed on Pt and Pt tolerated well for roughly 30 mins with saturations 89-93%; Pt was able to use aerobika and had a productive cough after. Per RT Pt okay to be on chronic oxygen while awake while saturations tolerate. Pt?s goal for oxygenation is 86%-90%. Pt has not been up during the shift.?Pt had an ECHO today.
--- NOTE | 2024-10-05 19:53 | RESP.RT ---
Patient has been noncompliant with following up with getting a CPAP machine. She has JEAN and does not move much. She has been on .25BiPAP 29/08. She needs to remain on BiPAP whenever she is falling asleep as her CO2 levels raise quickly. With a pressure support of 8 she still only has Vt of 380-500 and ocasionally has breakthrough apneas if her head of the bed is lowered. Positioning needs to be monitored for her to continue to ventilate.
[2024-10-05] MEDS: VANCOMYCIN 1.5 GM/300 ML 1.5 GM/300 ML PIGGYBACK IVPB (22:31)
[2024-10-05] MEDS: GABAPENTIN 300 MG CAPSULE PO (22:41)
[2024-10-06] VITALS (13 sets, daily range): BP systolic 107–131; BP diastolic 63–71; PULSE 77–127; RESP 13–22; TEMP 36–37.2; O2SAT 86–93
[2024-10-06] MEDS: METOPROLOL TARTRATE 1 MG/ML inj 5 MG IVP ×2 (02:47→14:47)
[2024-10-06] MEDS: PIPERACILLIN/TAZOBACTAM 3.375 GM in 0.9 % SODIUM CHLORIDE Mini-bag 100 ML IVPB ×2 (02:47→08:32)
[2024-10-06] MEDS: SODIUM CHLORIDE 0.9 % (FLUSH) 10 ML SYRINGE 5 ML IVF ×2 (02:48→08:32)
[2024-10-06 06:05] LABS: HCO3 VBG 42 mmol/L (21-28); PCO2 VBG 49 mmHG (40-50); PO2 VBG 48.8 mmHG (25-47); pH VBG 7.547 (7.32-7.43)
[2024-10-06 06:10] LABS: Hematocrit 41.1 % (33.0-51.0); Hemoglobin* 12.3 gm/dL (12.0-16.0); Mean Corpuscular HGB Conc 30 gm/dL (32-36); Mean Corpuscular Hemoglobin 29 pg (26-34); Mean Corpuscular Volume 98 fL (80-100); Platelet Count* 117 K/uL (140-440); Red Blood Count 4.21 m/uL (4.00-5.20); White Blood Count* 7.95 K/uL (4.50-11.00)
[2024-10-06 06:12] LABS: Slide Review Reflex No
[2024-10-06 06:31] LABS: Chloride* 92 mmol/L (96-114); Potassium* 3.1 mmol/L (3.6-5.1); Sodium* 143 mmol/L (135-149)
[2024-10-06 06:34] LABS: Blood Urea Nitrogen* 27 mg/dL (7-30); Calcium* 9.2 mg/dL (8.4-10.6); Creatinine* 1.2 mg/dL (0.5-1.5); Est. Creatinine Clearance* 45.26; Estimated Glomerular Filt Rate 49 ml/min; Glucose* 106 mg/dL (60-115)
[2024-10-06 06:35] LABS: Magnesium* 1.2 mg/dL (1.5-2.6)
--- NOTE | 2024-10-06 06:36 | PC.NURSE ---
[id number] pt pleasant and cooperative, slept well during the night. Pt slept with Bipap on entire night, tolerated very well, maintained sats between 88-92%. Currently awake and on 2lpm NC. denies chest pain, SOB, lightheaded or dizziness. Encouraged pt to reposition self as independently as possible, but pt limited in mobility so RN repositioned pt during shift. Pt motivated to take deep breaths, cough, and clear thick yellow secretions when present.
[2024-10-06 06:41] LABS: Anion Gap 14 mEq/L (7-15); Carbon Dioxide* 37 mmol/L (20-32)
--- NOTE | 2024-10-06 08:00 | CRLHL7_ITS ---
For Patients: As a result of the Century Cures Act, medical imaging exams and procedure reports are released immediately into your electronic medical record. You may view this report before your referring provider. If you have questions, please contact your health care provider. Indication: Congestive heart failure and community-acquired pneumonia Technique: Chest 1 view Comparison: Chest x-ray 10/04/2024 Findings/Impression: Cardiovascular and mediastinum: Cardiomegaly with atherosclerotic calcification. Lungs and pleural space: Low lung volumes without pleural effusion or pneumothorax. Pulmonary cephalization with some reticular interstitial prominence, likely interstitial edema. Appearance is fairly similar to the prior exam. Separate bandlike areas of likely atelectasis. Bones and soft tissues: No acute findings. Dictated by Quinton Jacob MD @ 10/06/2024 8:37:01 AM (Electronically Signed)
[2024-10-06] MEDS: POTASSIUM BICARB 25 MEQ EFFERVESCENT TAB PO ×4 (08:34→14:45)
[2024-10-06] MEDS: SPIRONOLACTONE 25 MG TABLET PO (08:34)
[2024-10-06] MEDS: FUROSEMIDE 10 MG/ML inj 40 MG IVP (08:34)
[2024-10-06] MEDS: APIXABAN 5 MG TABLET PO ×2 (08:35→20:32)
[2024-10-06] MEDS: GABAPENTIN 300 MG CAPSULE 600 MG PO ×3 (08:35→20:32)
[2024-10-06] MEDS: carvediloL 6.25 MG TABLET PO ×2 (08:35→18:24)
[2024-10-06] MEDS: MAGNESIUM IV 4 GM/100 ML PIGGYBACK IVPB (08:35)
[2024-10-06] MEDS: ACETAMINOPHEN 325 MG TABLET 975 MG PO (08:41)
--- NOTE | 2024-10-06 09:54 | RESP.RT ---
Patient was on BiPAP during the night, alternates with Nasal Cannula 2 Lpm. PEP was done with patient with Aerobika, good exhalation with good chest vibration. Patient SaO2 decreases when off BiPAP, Oxygen, when transferring, and when HOB is lowered. Patient does recover over quickly in minute/or two. Patient reported, she had sleep study over a year ago and was told at the time she did not need a CPAP.
--- NOTE | 2024-10-06 09:58 | NUTR.NU ---
RDN with nutrition screen related to positive skin risk. Patient admitted for respiratory failure, possible CHF exacerbation. Past medical history includes but not limited to CHF (congestive heart failure), CVA (cerebral vascular accident), Graves disease (09/15/11), Depression, and CKD stage 3a. Current weight 279lb 5oz; height 5ft 8in; BMI 42.5 kg/m2. No weight history in chart to assess. Patient was advanced to Regular diet this morning. Was NPO. No meal intakes in chart to assess. No nutrition interventions at this time. RDN will continue to monitor and will reassess as needed. Will attempt to provide diet education related to CHF at later date.
[2024-10-06 11:15] LABS: C.Difficile Negative (Negative); CDIFFEPI 027 PRESUMPTIVE NEGATIVE (Negative)
--- NOTE | 2024-10-06 11:27 | P.IMPN_ITS ---
Progress Note: A&P Assessment and plan (1) Respiratory failure with hypoxia: Problem details: - likely multifactorial: Appears to have a clinical CHF exacerbation, also may have mild community-acquired pneumonia - presumably has JEAN as well - supplemental oxygen, monitor closely for hypercarbia 10/05 was initiated on ceftriaxone/azithromycin on admission - discontinued 10/05, changed to vancomycin and Zosyn. Lactate 0.5, procalcitonin 0.05. Triple swab negative. MRSA ordered. CXR on admission shows congestive heart failure with diffuse interstitial edema. Will consider CT scan if new or worsening symptoms or no improvement, otherwise when stable. Changing to IV diuresis. Suspect this could be related to CHF and UTI rather than CAP. BC and UC pending 10/06: Appears to be more likely CHF. Acute on chronic diastolic preserved EF heart failure, [place] heart classification 3. Likely superimposed JEAN. echo: Final Impressions: 1. Normal LV size, normal wall thickness, normal function with an estimated EF of 65 - 70%. 2. Right ventricular cavity size is normal, global systolic RV function is normal. 3. Severely enlarged left atrium. 4. No significant valve disease detected. 5. Echo contrast was administered to enhance visualization of all left ventricular segments. Status: Acute (2) Hypercapnia: Problem details: 10/05: -VBG pH 7.264, pCO2 96, PO2 104, HC03 43 -obtunded -placed on BiPAP -responding, recheck VBG 77, monitoring VBGs -respiratory therapy for management 10/06-resolved Status: Acute (3) CHF (congestive heart failure): Problem details: - history of chronic diastolic heart failure, June 2018 LVEF of 55%, followed by [facility] - Unclear baseline, certainly seems to be fluid overloaded - receive 40 mg of IV Lasix in ER 10/04/24, will give another dose of IV Lasix 10/05, then returned to home doses of torsemide and spironolactone - TTE to evaluate current EF, murmur 10/05: Holding home torsemide and spironolactone. Lasix 40 mg IV b.i.d. Strict I&Os, daily weights. Echo completed 10/05 10/06: Last dose of IV Lasix given this morning 10/06. Will resume home torsemide (with two day bump to 40mg) , spironolactone, Eliquis, Coreg 10/06. Down 5.6 lb Status: Acute (4) Unspecified atrial fibrillation: Problem details: - Persistent, on apixaban and carvedilol - was in RVR upon arrival to the ER, this resolved during stay/resuscitation - continue home medications with prn IV metoprolol for of ER 10/05: Holding home carvedilol while on BiPAP. Scheduled metoprolol 5 mg IV q.6 with parameters. Holding home apixiban, starting enoxaparin 120 bid 10/06: Back to home meds. Eliquis, Coreg, spironolactone, torsemide Status: Acute (5) CVA (cerebral vascular accident): Problem details: - R parietal-occipital region, 02/2023 - was found down at home, GCS of 3, intubated Status: Acute (6) CKD stage 3a, GFR 45-59 ml/min: Problem details: -creatinine 0.9, monitor Status: Acute (7) Chronic pain syndrome: Problem details: -in reviewing [facility] records, on gabapentin 300 mg t.i.d. + 600 mg at at bedtime + 300 mg p.r.n. - holding -oxycodone - holding -UDS ordered as obtunded, all negative 10/06-holding oxycodone, continuing gabapentin. Improved sensorium. Status: Acute (8) Graves disease: Problem details: - follows with [facility], not currently on any medications, TSH 0.046. Normal T4. Status: Acute (9) Generalized anxiety disorder: Problem details: -resume gabapentin. Status: Acute (10) Generalized weakness: Problem details: -chronic. Will have PT/OT assess when stable -will likely need rehab stay Status: Acute (11) Hypomagnesemia: Problem details: -magnesium 1.1, given 2 g IV given respiratory distress -10/06 1.2, IV replacement Status: Acute (12) UTI (urinary tract infection): Problem details: 10/05 -suspected given UA results. History of same -UC pending -discontinue ceftriaxone/azithromycin -Zosyn and vancomycin started 10/06: Stopped IV antibiotics. Profuse diarrhea today. Starting oral Keflex. And probiotics. C diff negative. Status: Acute Subjective Date Seen: 10/06/24 Interval history: Daily Progress Note - Hospital Medicine Day #: 3 CC: Acute respiratory failure requiring BiPAP, CO2 narcosis, acute CHF, pansensitive UTI, hypokalemia, hypomagnesemia 24 HOUR UPDATE: Much improved. Is now on 2 L of nasal cannula oxygen and is awake and alert. Very weak. Incontinent of stool. Negative C diff. Vital signs stable. T-max 99?. Notable Labs, Micro, Rads, Interventions: Mildly alkalotic by blood gas today. PCO2 49. Potassium is dropped to 3.1 from 4.1. Sodium is stable. Magnesium is only up to 1.2 after IV supplementation. MRSA negative UA is growing E coli pansensitive Blood cultures negative today Portable chest x-ray Low lung volumes without pleural effusion or pneumothorax. Pulmonary cephalization with some reticular interstitial prominence, likely interstitial edema. Appearance is fairly similar to the prior exam. Separate bandlike areas of likely atelectasis. Objective: Alert, able to tell me her story. Vitals: see above Lungs: Crackles bilateral Cardiac: S1S2. Disposition/Potential discharge - Today I spent 50minutes seeing the patient, reviewing Expanse and EPIC notes/diagnostics, discussing the care plan with our care time that includes social work, PT/OT, pharmacy, RT, fdc and documenting my impressions and plan in the medical record. Exam Const: Vital Signs, click to edit/add: Vital Signs - 24 hr 10/05/24 11:45 10/05/24 12:06 10/05/24 12:08 Temperature 97.0 F L Pulse Rate 86 Pulse Rate [Pulse Oximeter] 85 84 Respiratory Rate 20 Blood Pressure [Ri ght Arm] 134/83 Pulse Oximetry 88 Oxygen Delivery Me thod BiPAP Oxygen Flow Rate 30 Fraction of Inspir ed Oxygen 21 10/05/24 13:29 10/05/24 14:06 10/05/24 15:26 Temperature 97.5 F L Pulse Rate Pulse Rate [Pulse Oximeter] 93 Respiratory Rate 20 19 Blood Pressure [Ri ght Arm] 142/83 H Pulse Oximetry 90 90 Oxygen Delivery Me thod BiPAP BiPAP Oxygen Flow Rate 30 21 Fraction of Inspir ed Oxygen 0.25 0.25 10/05/24 16:00 10/05/24 16:05 10/05/24 16:48 Temperature 98.1 F Pulse Rate 89 Pulse Rate [Pulse Oximeter] 93 92 Respiratory Rate 14 20 Blood Pressure [Ri ght Arm] 139/77 Pulse Oximetry 90 Oxygen Delivery Me thod BiPAP Oxygen Flow Rate 21 Fraction of Inspir ed Oxygen 10/05/24 18:16 10/05/24 20:00 10/05/24 20:00 Temperature 97.5 F L 97.8 F Pulse Rate Pulse Rate [Pulse Oximeter] 98 97 99 Respiratory Rate 20 20 22 Blood Pressure [Ri ght Arm] 139/74 147/85 H Pulse Oximetry 90 90 Oxygen Delivery Me thod BiPAP Nasal Cannula Oxygen Flow Rate 21 2 Fraction of Inspir ed Oxygen 10/05/24 20:30 10/05/24 22:00 10/05/24 22:36 Temperature Pulse Rate 104 H Pulse Rate [Pulse Oximeter] 84 Respiratory Rate 22 22 Blood Pressure [Ri ght Arm] 146/98 H Pulse Oximetry 92 91 Oxygen Delivery Me thod Nasal Cannula Nasal Cannula Oxygen Flow Rate 2 2 Fraction of Inspir ed Oxygen 10/06/24 00:00 10/06/24 00:00 10/06/24 00:00 Temperature 96.8 F L Pulse Rate 87 Pulse Rate [Pulse Oximeter] 86 Respiratory Rate 22 18 Blood Pressure [Ri ght Arm] 124/71 Pulse Oximetry 91 Oxygen Delivery Me thod BiPAP Oxygen Flow Rate Fraction of Inspir ed Oxygen 10/06/24 02:00 10/06/24 04:00 10/06/24 04:00 Temperature 98.1 F Pulse Rate Pulse Rate [Pulse Oximeter] 89 89 82 Respiratory Rate 18 18 Blood Pressure [Ri ght Arm] 107/66 112/69 Pulse Oximetry 88 89 Oxygen Delivery Me thod BiPAP BiPAP Oxygen Flow Rate Fraction of Inspir ed Oxygen 10/06/24 04:00 10/06/24 06:00 10/06/24 07:00 Temperature 99.0 F Pulse Rate 78 87 Pulse Rate [Pulse Oximeter] 90 Respiratory Rate 18 Blood Pressure [Ri ght Arm] 115/63 Pulse Oximetry 92 Oxygen Delivery Me thod Nasal Cannula Oxygen Flow Rate 2 Fraction of Inspir ed Oxygen 10/06/24 09:49 10/06/24 09:49 Temperature Pulse Rate Pulse Rate [Pulse Oximeter] Respiratory Rate 20 Blood Pressure [Ri ght Arm] Pulse Oximetry 92 Oxygen Delivery Me thod Nasal Cannula Oxygen Flow Rate 2 Fraction of Inspir ed Oxygen 21 Labs Labs: Laboratory Results - last 24 hr 10/05/24 10/06/24 10/06/24 15:08 05:55 10:08 WBC 7.95 RBC 4.21 Hgb 12.3 Hct 41.1 MCV 98 MCH 29 MCHC 30 L Plt Count 117 L VBG pH 7.479 H 7.547 H VBG pCO2 61 H* 49 VBG pO2 33.8 48.8 H VBG HCO3 45 H 42 H Sodium 143 Potassium 3.1 L Chloride 92 L Carbon Dioxide 37 H Anion Gap 14 BUN 27 Creatinine 1.2 Estimated Creat Clear 45.26 Estimated GFR 49 Glucose 106 Calcium 9.2 Magnesium 1.2 L Stl C. diff Tox B Gene Negative Stl C. diff [id number] PRESUMPTIVE NEGATIVE
[2024-10-06] MEDS: FLUCONAZOLE 100 MG TABLET 200 MG PO (12:04)
[2024-10-06] MEDS: LACTOBACILLUS ACIDOPHILUS 1 TABLET 1 TAB PO ×2 (12:04→18:24)
[2024-10-06] MEDS: LOPERAMIDE HCL 2 MG CAPSULE PO ×2 (12:04→14:56)
[2024-10-06 17:58] LABS: Chloride* 90 mmol/L (96-114); Sodium* 142 mmol/L (135-149)
[2024-10-06 17:59] LABS: Potassium* 3.9 mmol/L (3.6-5.1)
[2024-10-06 18:01] LABS: Blood Urea Nitrogen* 36 mg/dL (7-30); Creatinine* 1.4 mg/dL (0.5-1.5); Estimated Glomerular Filt Rate 41 ml/min
[2024-10-06 18:02] LABS: Calcium* 9.2 mg/dL (8.4-10.6); Glucose* 114 mg/dL (60-115); Magnesium* 2.4 mg/dL (1.5-2.6); Phosphorus* 1.6 mg/dL (2.5-4.5)
[2024-10-06 18:10] LABS: Anion Gap 10 mEq/L (7-15); Carbon Dioxide* 42 mmol/L (20-32)
[2024-10-06] MEDS: 0.9 % SODIUM CHLORIDE 500 ML 500 ML IV (19:18)
--- NOTE | 2024-10-06 19:25 | PC.NURSE ---
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
[2024-10-06] MEDS: NYSTATIN POWDER 1 APPLIC TOPICAL (20:31)
[2024-10-06] MEDS: cephALEXin 500 MG CAPSULE PO (20:32)
[2024-10-06] MEDS: ATORVASTATIN CALCIUM 40 MG TABLET PO (20:32)
[2024-10-06] MEDS: POTASSIUM PHOS/SODIUM PHOS 250 MG TABLET PO (21:05)
[2024-10-07] VITALS (11 sets, daily range): BP systolic 106–148; BP diastolic 69–97; PULSE 73–122; RESP 17–22; TEMP 36.4–36.7; O2SAT 89–93
[2024-10-07] MEDS: ACETAMINOPHEN 325 MG TABLET 975 MG PO ×2 (01:00→07:39)
[2024-10-07 06:15] LABS: HCO3 VBG 47 mmol/L (21-28); Hematocrit 41.4 % (33.0-51.0); Hemoglobin* 12.6 gm/dL (12.0-16.0); Mean Corpuscular HGB Conc 30 gm/dL (32-36); Mean Corpuscular Hemoglobin 30 pg (26-34); Mean Corpuscular Volume 97 fL (80-100); PO2 VBG 31.4 mmHG (25-47); Platelet Count* 111 K/uL (140-440); Red Blood Count 4.25 m/uL (4.00-5.20); pH VBG 7.481 (7.32-7.43)
[2024-10-07 06:17] LABS: Slide Review Reflex No
[2024-10-07 06:20] LABS: PCO2 VBG 63 mmHG (40-50)
--- NOTE | 2024-10-07 06:38 | PC.NURSE ---
End of shift summary: Pt has been A&O, afebrile and VSS. Ax 1-2 to BS with gait belt & 2ww. [place] intact & patent. PIV in left AC SL and C/D/I. TELE read A. Fib NVR all night with a rate in the 70s- 90s bpm. No IVP metoprolol was administered overnight. Pt tolerated BiPAP for the majority of the night, only removing it from 0140 to 0200 while she was awake and having a snack. O2% needed to be adjusted slightly from 21 to 25% because pt kept dipping down to 83-84% while on the 21% FiO2. It lasted momentarily for about 20 minutes and happened about 4-5 times. Pt requested PRN Tylenol @ 0100 for headache from the BiPAP straps. She had x1 small incontinent BM. Home dose of torsemide is resuming today 10/07. No c/o nausea, dizziness or CP overnight. Nystatin powder administered to bilateral breast folds for erythema. Droplet precautions ongoing ?for suspected CAP.?
[2024-10-07 06:40] LABS: Albumin* 3.7 g/dL (3.3-5.0); Chloride* 92 mmol/L (96-114); Potassium* 3.6 mmol/L (3.6-5.1); Sodium* 142 mmol/L (135-149)
[2024-10-07 06:43] LABS: Blood Urea Nitrogen* 37 mg/dL (7-30); Creatinine* 1.1 mg/dL (0.5-1.5); Est. Creatinine Clearance* 49.38; Estimated Glomerular Filt Rate 55 ml/min
[2024-10-07 06:44] LABS: Calcium* 8.8 mg/dL (8.4-10.6); Glucose* 108 mg/dL (60-115); Phosphorus* 2.2 mg/dL (2.5-4.5)
[2024-10-07 06:50] LABS: Anion Gap 10 mEq/L (7-15); Carbon Dioxide* 40 mmol/L (20-32)
[2024-10-07] MEDS: LOPERAMIDE HCL 2 MG CAPSULE PO (07:40)
[2024-10-07] MEDS: carvediloL 6.25 MG TABLET PO ×2 (07:40→18:04)
[2024-10-07] MEDS: TORSEMIDE 20 MG TABLET 40 MG PO (07:40)
[2024-10-07] MEDS: LACTOBACILLUS ACIDOPHILUS 1 TABLET 1 TAB PO ×3 (07:40→18:04)
[2024-10-07] MEDS: POTASSIUM PHOS/SODIUM PHOS 250 MG TABLET PO ×3 (10:20→20:29)
[2024-10-07] MEDS: GABAPENTIN 300 MG CAPSULE 600 MG PO ×3 (10:20→20:29)
[2024-10-07] MEDS: cephALEXin 500 MG CAPSULE PO ×2 (10:20→20:29)
[2024-10-07] MEDS: SPIRONOLACTONE 25 MG TABLET PO (10:20)
[2024-10-07] MEDS: APIXABAN 5 MG TABLET PO ×2 (10:21→20:29)
[2024-10-07] MEDS: MAGNESIUM OXIDE 400 MG TABLET 800 MG PO ×2 (10:21→20:28)
[2024-10-07] MEDS: METOPROLOL TARTRATE 1 MG/ML inj 5 MG IVP (10:21)
[2024-10-07] MEDS: NYSTATIN POWDER 1 APPLIC TOPICAL ×2 (10:22→20:29)
[2024-10-07] MEDS: SODIUM CHLORIDE 0.9 % (FLUSH) 10 ML SYRINGE 5 ML IVF ×2 (10:22→20:31)
--- NOTE | 2024-10-07 10:54 | NUTR.NU ---
Addendum entered and electronically signed by Vaishali Obrien RD 10/07/24 10:57: RDN also offered patient a heart healthy diet, however she declined at this time. Original Note: RDN with diet education related to heart failure exacerbation. Patient admitted for respiratory failure, possible CHF exacerbation. Past medical history includes but not limited to CHF (congestive heart failure), CVA (cerebral vascular accident), Graves disease (09/15/11), Depression, and CKD stage 3a. Current weight 277lb 14.4oz; height 5ft 8in; BMI 42.3 kg/m2. No weight history in chart to assess. RDN visited with patient whom reports following a heart healthy diet at home. She declined diet education at this time but did accept educational handouts. RDN's contact information provided and encouraged patient to call with questions. RDN to follow up as needed.
--- NOTE | 2024-10-07 11:12 | PM.IMPN1 ---
Progress Note: A&P Assessment and plan (1) Respiratory failure with hypoxia: Problem details: - resolving CHF excerbation; untreated JEAN - supplemental oxygen, monitor closely for hypercarbia 10/05 was initiated on ceftriaxone/azithromycin on admission - discontinued 10/05, changed to vancomycin and Zosyn. Lactate 0.5, procalcitonin 0.05. Triple swab negative. MRSA neg. CXR on admission shows congestive heart failure with diffuse interstitial edema. 10/06: Appears to be more likely CHF. Acute on chronic diastolic preserved EF heart failure, [place] heart classification 3. Likely superimposed JEAN. Status: Acute (2) Hypercapnia: Problem details: 10/05: -VBG pH 7.264, pCO2 96, PO2 104, HC03 43 -obtunded -placed on BiPAP -responding, recheck VBG 77, monitoring VBGs -respiratory therapy for management 10/06-resolved 10/07 - pCO2 increased again to 63 with near normal pH Status: Acute (3) CHF (congestive heart failure): Problem details: - history of chronic diastolic heart failure followed by [facility] 10/05: Holding home torsemide and spironolactone. Lasix 40 mg IV b.i.d. Strict I&Os, daily weights. Echo completed 10/05 10/06: Last dose of IV Lasix given this morning 10/06. Will resume home torsemide (with two day bump to 40mg) , spironolactone, Eliquis, Coreg 10/06. Down 5.6 lb 10/05/24 Final Impressions: 1. Normal LV size, normal wall thickness, normal function with an estimated EF of 65 - 70%. 2. Right ventricular cavity size is normal, global systolic RV function is normal. 3. Severely enlarged left atrium. 4. No significant valve disease detected. 5. Echo contrast was administered to enhance visualization of all left ventricular segments. 10/07/24 - torsemide 40mg (20mg is home dose); down 8.6 lbs, resume coreg with prn metoprolol for rate control. still on 2L NC and bipap at night. needs updated sleep study and JEAN treatment. Status: Acute (4) Unspecified atrial fibrillation: Problem details: - Persistent, on apixaban and carvedilol - was in RVR upon arrival to the ER, this resolved during stay/resuscitation - continue home medications with prn IV metoprolol for of ER 10/05: Holding home carvedilol while on BiPAP. Scheduled metoprolol 5 mg IV q.6 with parameters. Holding home apixiban, starting enoxaparin 120 bid 10/06: Back to home meds. Eliquis, Coreg, spironolactone, torsemide - PRN metoprolol for rate increases Status: Acute (5) CVA (cerebral vascular accident): Problem details: - R parietal-occipital region, 02/2023 - was found down at home, GCS of 3, intubated Status: Acute (6) CKD stage 3a, GFR 45-59 ml/min: Problem details: -creatinine 0.9, monitor Status: Acute (7) Chronic pain syndrome: Problem details: -in reviewing [facility] records, on gabapentin 300 mg t.i.d. + 600 mg at at bedtime + 300 mg p.r.n. - holding -oxycodone - holding -UDS ordered as obtunded, all negative 10/06-holding oxycodone, continuing gabapentin. Improved sensorium. Status: Acute (8) Graves disease: Problem details: - follows with [facility], not currently on any medications, TSH 0.046. Normal T4. Status: Acute (9) Generalized anxiety disorder: Problem details: -resume gabapentin. Status: Acute (10) Generalized weakness: Problem details: -acute on chronic - will need rehab Status: Acute (11) Hypomagnesemia: Problem details: -magnesium 1.1, given 2 g IV given respiratory distress -10/06 1.2, IV replacement -10/07 normal Status: Acute (12) UTI (urinary tract infection): Problem details: 10/05 -suspected given UA results. History of same -UC pending -discontinue ceftriaxone/azithromycin -Zosyn and vancomycin started 10/06: Stopped IV antibiotics. Profuse diarrhea today. Starting oral Keflex. And probiotics/imodium. C diff negative. Status: Acute Subjective Date Seen: 10/07/24 Interval history: Daily Progress Note - Hospital Medicine Day #: 4 CC: Acute respiratory failure requiring BiPAP, CO2 narcosis, acute CHF, pansensitive UTI, hypokalemia, hypomagnesemia 24 HOUR UPDATE: Much improved. Is now on 2 L of nasal cannula oxygen and is awake and alert. Very weak. Incontinent of stool. Negative C diff. Vital signs stable. T-max 99?. Notable Labs, Micro, Rads, Interventions: Vital signs are reviewed. Stable. Blood pressure has been a little softer since midnight. Pulse is in the 70s. She wore BiPAP most of the night. She is currently on 2 L per nasal cannula. CBC stable. Blood gas shows a bounce in her pCO2. Up to 63 this morning despite BiPAP. However, her pH is normal at 7.48. Electrolytes are improved. Her potassium is normal. Her phosphorus is low normal. Her magnesium is normal. Her renal function looks improved. Negative C diff. MRSA negative. Pansensitive E coli in her UA Blood cultures negative today Objective: Alert, able to tell me her story. Vitals: see above Lungs: aeration improved; less crackles. edema improved. Cardiac: S1S2. Disposition/Potential discharge - SNF on 10/09 likely. Today I spent 50minutes seeing the patient, reviewing Expanse and EPIC notes/diagnostics, discussing the care plan with our care time that includes social work, PT/OT, pharmacy, RT, half-way and documenting my impressions and plan in the medical record. Exam Const: Vital Signs, click to edit/add: Vital Signs - 24 hr 10/06/24 12:00 10/06/24 15:00 10/06/24 15:00 Temperature 98.0 F Pulse Rate Pulse Rate [Pulse Oximeter] 103 H 127 H Respiratory Rate 20 20 Blood Pressure [Ri ght Arm] 131/68 Pulse Oximetry 93 93 Oxygen Delivery Me thod Nasal Cannula Nasal Cannula Oxygen Flow Rate 2 2 Fraction of Inspir ed Oxygen 10/06/24 15:00 10/06/24 16:00 10/06/24 19:40 Temperature 97.8 F 98.1 F Pulse Rate 88 Pulse Rate [Pulse Oximeter] 127 H 100 Respiratory Rate 20 20 Blood Pressure [Ri ght Arm] 126/64 121/71 Pulse Oximetry 93 91 Oxygen Delivery Me thod Nasal Cannula Nasal Cannula Oxygen Flow Rate 2 2 Fraction of Inspir ed Oxygen 10/06/24 20:33 10/06/24 23:00 10/06/24 23:00 Temperature Pulse Rate 77 Pulse Rate [Pulse Oximeter] 91 77 Respiratory Rate 13 Blood Pressure [Ri ght Arm] Pulse Oximetry Oxygen Delivery Me thod Oxygen Flow Rate Fraction of Inspir ed Oxygen 10/06/24 23:00 10/06/24 23:00 10/07/24 01:25 Temperature Pulse Rate Pulse Rate [Pulse Oximeter] 77 Respiratory Rate 13 13 Blood Pressure [Ri ght Arm] 107/71 Pulse Oximetry 86 L 86 L 93 Oxygen Delivery Me thod BiPAP BiPAP Nasal Cannula Oxygen Flow Rate 2 Fraction of Inspir ed Oxygen 21 21 10/07/24 01:27 10/07/24 02:35 10/07/24 03:19 Temperature Pulse Rate Pulse Rate [Pulse Oximeter] 80 82 Respiratory Rate 17 Blood Pressure [Ri ght Arm] 106/75 Pulse Oximetry 90 89 Oxygen Delivery Me thod Nasal Cannula BiPAP Oxygen Flow Rate 1.5 Fraction of Inspir ed Oxygen 10/07/24 07:00 Temperature Pulse Rate 73 Pulse Rate [Pulse Oximeter] Respiratory Rate Blood Pressure [Ri ght Arm] Pulse Oximetry Oxygen Delivery Me thod Oxygen Flow Rate Fraction of Inspir ed Oxygen Labs Labs: Laboratory Results - last 24 hr 10/06/24 10/06/24 10/07/24 10:08 17:30 05:50 WBC 7.20 RBC 4.25 Hgb 12.6 Hct 41.4 MCV 97 MCH 30 MCHC 30 L Plt Count 111 L VBG pH 7.481 H VBG pCO2 63 H* VBG pO2 31.4 VBG HCO3 47 H Sodium 142 142 Potassium 3.9 3.6 Chloride 90 L 92 L Carbon Dioxide 42 H* 40 H Anion Gap 10 10 BUN 36 H 37 H Creatinine 1.4 1.1 Estimated Creat Clear 38.80 49.38 Estimated GFR 41 55 Glucose 114 108 Calcium 9.2 8.8 Ionized Calcium Radha 1.10 L Phosphorus 1.6 L 2.2 L Magnesium 2.4 Cancelled Albumin 4.0 Stl C. diff Tox B Gene Negative Stl C. diff [id number] PRESUMPTIVE NEGATIVE 10/07/24 05:50 WBC RBC Hgb Hct MCV MCH MCHC Plt Count VBG pH VBG pCO2 VBG pO2 VBG HCO3 Sodium Potassium Chloride Carbon Dioxide Anion Gap BUN Creatinine Estimated Creat Clear Estimated GFR Glucose Calcium Ionized Calcium Radha Phosphorus Magnesium 2.0 Albumin 3.7 Stl C. diff Tox B Gene Stl C. diff [id number]
--- NOTE | 2024-10-07 11:45 | PC.SOCIAL ---
Discharge planning: Met with pt who is requesting placement for short term rehab in a [facility]p facility contracted with her insurance. Provided pt a list of these facilities with their DHS ratings and directions on how to find more information on these ratings. Pt requested social science instructor contact [facility] and [facility] in [facility] for availability and review for admission. Referrals were secure emailed to all three of these facilities and awaiting call back with decision on admit. Pt has been to [facility] for rehab before and has had a friend who was in [place] and reported a good experience. head loft worker to follow up as needed.
[2024-10-07 15:48] LABS: HCO3 VBG 44 mmol/L (21-28); pH VBG 7.415 (7.32-7.43)
[2024-10-07 16:24] LABS: PCO2 VBG 69 mmHG (40-50)
[2024-10-07] MEDS: NYSTATIN CREAM 30 GM 1 APPLIC TOPICAL (20:29)
[2024-10-07] MEDS: ATORVASTATIN CALCIUM 40 MG TABLET PO (20:29)
[2024-10-08] VITALS (11 sets, daily range): BP systolic 118–130; BP diastolic 61–81; PULSE 65–106; RESP 14–26; TEMP 36.1–36.6; O2SAT 77–94
[2024-10-08] MEDS: ACETAMINOPHEN 325 MG TABLET 975 MG PO ×3 (00:10→17:49)
[2024-10-08 06:16] LABS: HCO3 VBG 46 mmol/L (21-28); PO2 VBG 46.4 mmHG (25-47); pH VBG 7.307 (7.32-7.43)
[2024-10-08 06:22] LABS: PCO2 VBG 91 mmHG (40-50)
[2024-10-08 06:29] LABS: Hematocrit 43.9 % (33.0-51.0); Hemoglobin* 12.9 gm/dL (12.0-16.0); Mean Corpuscular HGB Conc 29 gm/dL (32-36); Mean Corpuscular Hemoglobin 30 pg (26-34); Mean Corpuscular Volume 100 fL (80-100); Platelet Count* 110 K/uL (140-440); Red Blood Count 4.38 m/uL (4.00-5.20); White Blood Count* 6.91 K/uL (4.50-11.00)
[2024-10-08 06:32] LABS: Slide Review Reflex No
[2024-10-08 06:50] LABS: Albumin* 3.8 g/dL (3.3-5.0); Chloride* 93 mmol/L (96-114); Potassium* 3.8 mmol/L (3.6-5.1); Sodium* 144 mmol/L (135-149)
[2024-10-08 06:52] LABS: Creatinine* 1.3 mg/dL (0.5-1.5); Est. Creatinine Clearance* 41.78; Estimated Glomerular Filt Rate 45 ml/min
[2024-10-08 06:53] LABS: Blood Urea Nitrogen* 44 mg/dL (7-30); Calcium* 8.4 mg/dL (8.4-10.6); Glucose* 117 mg/dL (60-115)
[2024-10-08 07:00] LABS: Anion Gap 11 mEq/L (7-15); Carbon Dioxide* 40 mmol/L (20-32)
--- NOTE | 2024-10-08 07:01 | PC.NURSE ---
End of shift summary: Pt has been A&O, afebrile and VSS overnight. [place] [facility] She was continent of bladder overnight, no BM. BLL 1+ edema, SCD?s in place. TELE read A. Fib with a rate in the 70s-90s at rest. IVP Metoprolol was not required overnight. When she was up to the BSC, HR increased to the 120s ?130s momentarily. PIV in left AC SL and C/D/I. Upon nurse?s arrival, pt was on 2L NC. She was resistive to put BiPaP on but agreed to from 2330 to 0145 when she was adamant about removing it again. She maintained between 84% - 92% on 1.5L to 2.5L Pt seemed more lethargic for AM lab draw at 0600 and this is when lyric writer placed her back on BiPaP. SW to arrange rehab placement for discharge planning. ?
[2024-10-08 07:17] LABS: Phosphorus* 6.6 mg/dL (2.5-4.5)
[2024-10-08] MEDS: carvediloL 6.25 MG TABLET PO ×2 (07:36→17:49)
[2024-10-08] MEDS: LACTOBACILLUS ACIDOPHILUS 1 TABLET 1 TAB PO ×3 (07:36→17:49)
[2024-10-08] MEDS: TORSEMIDE 20 MG TABLET 40 MG PO (07:36)
--- NOTE | 2024-10-08 08:13 | PM.IMPN1 ---
Progress Note: A&P Assessment and plan (1) Respiratory failure with hypoxia: Problem details: - resolving CHF exacerbation; untreated JEAN - supplemental oxygen, monitor closely for hypercarbia - compliance with bipap is a central issue - will get chest CTA this am. 10/05 was initiated on ceftriaxone/azithromycin on admission - discontinued 10/05, changed to vancomycin and Zosyn. Lactate 0.5, procalcitonin 0.05. Triple swab negative. MRSA neg. CXR on admission shows congestive heart failure with diffuse interstitial edema. 10/06: Appears to be more likely CHF. Acute on chronic diastolic preserved EF heart failure, [place] heart classification 3. Likely superimposed JEAN. Status: Acute (2) Hypercapnia: Problem details: 10/05: -VBG pH 7.264, pCO2 96, PO2 104, HC03 43 -obtunded -placed on BiPAP -responding, recheck VBG 77, monitoring VBGs -respiratory therapy for management 10/06-resolved 10/07 - pCO2 increased again to 63 with near normal pH 10/08 - pCO2 90+, pH 7.3 - getting CTA and more comfortable bipap mask. looked at meds: cut gabapentin in half today. decrease sedative effect. Status: Acute (3) CHF (congestive heart failure): Problem details: - history of chronic diastolic heart failure followed by [facility] 10/05: Holding home torsemide and spironolactone. Lasix 40 mg IV b.i.d. Strict I&Os, daily weights. Echo completed 10/05 10/06: Last dose of IV Lasix given this morning 10/06. Will resume home torsemide (with two day bump to 40mg) , spironolactone, Eliquis, Coreg 10/06. Down 5.6 lb 10/05/24 Final Impressions: 1. Normal LV size, normal wall thickness, normal function with an estimated EF of 65 - 70%. 2. Right ventricular cavity size is normal, global systolic RV function is normal. 3. Severely enlarged left atrium. 4. No significant valve disease detected. 5. Echo contrast was administered to enhance visualization of all left ventricular segments. 10/07/24 - torsemide 40mg (20mg is home dose); down 8.6 lbs, resume coreg with prn metoprolol for rate control. still on 2L NC and bipap at night. needs updated sleep study and JEAN treatment. Status: Acute (4) Unspecified atrial fibrillation: Problem details: - Persistent, on apixaban and carvedilol - was in RVR upon arrival to the ER, this resolved during stay/resuscitation - continue home medications with prn IV metoprolol for rate control 10/05: Holding home carvedilol while on BiPAP. Scheduled metoprolol 5 mg IV q.6 with parameters. Holding home apixiban, starting enoxaparin 120 bid 10/06: Back to home meds. Eliquis, Coreg, spironolactone, torsemide - PRN metoprolol for rate increases Status: Acute (5) CVA (cerebral vascular accident): Problem details: - R parietal-occipital region, 02/2023 - was found down at home, GCS of 3, intubated Status: Acute (6) CKD stage 3a, GFR 45-59 ml/min: Problem details: -mild BAILEE with diuresis; following Status: Acute (7) Chronic pain syndrome: Problem details: -in reviewing [facility] records, on gabapentin 300 mg t.i.d. + 600 mg at at bedtime + 300 mg p.r.n. - holding -oxycodone - holding -UDS ordered as obtunded, all negative 10/06-holding oxycodone, continuing gabapentin. Improved sensorium. Status: Acute (8) Graves disease: Problem details: - follows with [facility], not currently on any medications, TSH 0.046. Normal T4. Status: Acute (9) Generalized anxiety disorder: Problem details: -resume gabapentin. Status: Acute (10) Generalized weakness: Problem details: -acute on chronic - will need rehab Status: Acute (11) Hypomagnesemia: Problem details: -magnesium 1.1, given 2 g IV given respiratory distress -10/06 1.2, IV replacement -10/07 normal Status: Acute (12) UTI (urinary tract infection): Problem details: 10/05 -suspected given UA results. History of same -UC pending -discontinue ceftriaxone/azithromycin -Zosyn and vancomycin started 10/06: Stopped IV antibiotics. Profuse diarrhea today. Starting oral Keflex. And probiotics/imodium. C diff negative. Status: Acute Subjective Date Seen: 10/08/24 Interval history: Daily Progress Note - Hospital Medicine Day #: 5 CC: Acute respiratory failure requiring BiPAP, CO2 narcosis, acute CHF, pansensitive UTI, hypokalemia, hypomagnesemia 24 HOUR UPDATE: Didn't do as well last night as the night and day before. Did not tolerate BiPap last night. No wear from 130-630am with resulting hypercapnia of 91. She was symptomatic with brain fog; no flinch with lab draw. RN reapplied bipap and she woke up some. Feels groggy when I came to bedside at 0810. She is reading her phone. Communicating to me how uncomfortable BiPaP feels. We discussed the root cause of her hypercapnia which is untreated JEAN in the setting of acute CHF. Notable Labs, Micro, Rads, Interventions: Vital signs are reviewed. Stable. Blood pressure stable. Pulse is in the 70s. CBC stable. pH down to 7.3, CO2 91 - likely as a result of not wearing her BiPaP sodium and potassium and renal function stable. bicarb 40, hypochloremic. phosphorus acutely elevated to 6.6 BC NGTD MRSA NEG Ecoli UTI noted Objective: stable; awake - as above - asking questions and reports some grogginess - scrolling on phone. Vitals: see above Lungs: aeration improved; less crackles. edema improved. Cardiac: S1S2. Disposition/Potential discharge - SNF on 10/09 likely. Today I spent 50minutes seeing the patient, reviewing Expanse and EPIC notes/diagnostics, discussing the care plan with our care time that includes social work, PT/OT, pharmacy, RT, intermediate and documenting my impressions and plan in the medical record. Exam Const: Vital Signs, click to edit/add: Vital Signs - 24 hr 10/07/24 12:00 10/07/24 15:46 10/07/24 16:00 Temperature 97.9 F Pulse Rate 92 Pulse Rate [Pulse Oximeter] 108 H Respiratory Rate 20 Blood Pressure [Le ft Arm] Blood Pressure [Ri ght Arm] 127/87 Pulse Oximetry 93 Oxygen Delivery Me thod BiPAP Oxygen Flow Rate 2 Fraction of Inspir ed Oxygen 0.25 10/07/24 16:00 10/07/24 16:00 10/07/24 16:00 Temperature 97.7 F Pulse Rate Pulse Rate [Pulse Oximeter] 97 97 Respiratory Rate 20 20 Blood Pressure [Le ft Arm] Blood Pressure [Ri ght Arm] 109/69 Pulse Oximetry 92 93 Oxygen Delivery Me thod BiPAP BiPAP Oxygen Flow Rate 2 2 Fraction of Inspir ed Oxygen 10/07/24 19:00 10/07/24 23:00 10/07/24 23:55 Temperature 98 F Pulse Rate 77 122 H Pulse Rate [Pulse Oximeter] 98 Respiratory Rate 20 Blood Pressure [Le ft Arm] Blood Pressure [Ri ght Arm] 120/71 Pulse Oximetry 91 Oxygen Delivery Me thod Nasal Cannula Oxygen Flow Rate 2 Fraction of Inspir ed Oxygen 10/07/24 23:55 10/07/24 23:55 10/07/24 23:55 Temperature 97.5 F L Pulse Rate Pulse Rate [Pulse Oximeter] 92 92 Respiratory Rate 22 22 22 Blood Pressure [Le ft Arm] 131/91 H Blood Pressure [Ri ght Arm] Pulse Oximetry 93 93 Oxygen Delivery Me thod Nasal Cannula Nasal Cannula Oxygen Flow Rate 2 2 Fraction of Inspir ed Oxygen 10/08/24 01:52 10/08/24 01:53 10/08/24 03:31 Temperature 97.6 F Pulse Rate Pulse Rate [Pulse Oximeter] 76 Respiratory Rate 18 Blood Pressure [Le ft Arm] 122/70 Blood Pressure [Ri ght Arm] Pulse Oximetry 77 L 88 90 Oxygen Delivery Me thod Nasal Cannula Nasal Cannula Nasal Cannula Oxygen Flow Rate 1.5 2.5 1.5 Fraction of Inspir ed Oxygen 10/08/24 04:06 10/08/24 07:16 10/08/24 07:42 Temperature 97 F L Pulse Rate 73 Pulse Rate [Pulse Oximeter] 85 Respiratory Rate 14 Blood Pressure [Le ft Arm] 130/81 Blood Pressure [Ri ght Arm] Pulse Oximetry 86 L 88 Oxygen Delivery Me thod Nasal Cannula Nasal Cannula Oxygen Flow Rate 2 1 Fraction of Inspir ed Oxygen Labs Labs: Laboratory Results - last 24 hr 10/07/24 10/08/24 15:35 05:45 WBC 6.91 RBC 4.38 Hgb 12.9 Hct 43.9 MCV 100 MCH 30 MCHC 29 L Plt Count 110 L VBG pH 7.415 7.307 L VBG pCO2 69 H* 91 H* VBG pO2 33.0 46.4 VBG HCO3 44 H 46 H Sodium 144 Potassium 3.8 Chloride 93 L Carbon Dioxide 40 H Anion Gap 11 BUN 44 H Creatinine 1.3 Estimated Creat Clear 41.78 Estimated GFR 45 Glucose 117 H Calcium 8.4 Phosphorus 6.6 H* Albumin 3.8
[2024-10-08] MEDS: cephALEXin 500 MG CAPSULE PO ×2 (09:19→21:38)
[2024-10-08] MEDS: MAGNESIUM OXIDE 400 MG TABLET 800 MG PO ×2 (09:19→21:39)
[2024-10-08] MEDS: SPIRONOLACTONE 25 MG TABLET PO (09:19)
[2024-10-08] MEDS: POTASSIUM PHOS/SODIUM PHOS 250 MG TABLET PO (09:20)
[2024-10-08] MEDS: GABAPENTIN 300 MG CAPSULE PO ×3 (09:20→21:38)
[2024-10-08] MEDS: APIXABAN 5 MG TABLET PO ×2 (09:20→21:38)
--- NOTE | 2024-10-08 10:05 | PM.DS1 ---
DS: Providers Provider Date Seen: 10/08/24 Date of admission: 10/05/24 07:55 Primary care physician: Not a Local Provider Admitting Clinician: Tasneem Ding MD Consults: 10/05/24 00:05 Consult to Physical Therapy [CONS] Routine Comment: Reason(s) for PT Consult:: Evaluate and Treat Any Restrictions?:: No Restrictions Consult to Jack Winder [CONS] Routine Comment: Reason for Consult:: Discharge Planning Needs 10/05/24 00:06 Consult to Occupational Therapy [CONS] Routine Comment: Reason(s) for OT Consult:: Evaluate and Treat Any Restrictions?:: No Restrictions Attending Physician on discharge: Priya Carmona MD [facility] Date of Discharge: 10/08/24 DS: Summary Time Spent with Patient Time attestation: Total time spent providing and/or coordinating discharge services: Exam Const: Vital Signs, click to edit/add: Vital Signs - 24 hr 10/07/24 12:00 10/07/24 15:46 10/07/24 16:00 Temperature 97.9 F Pulse Rate 92 Pulse Rate [Pulse Oximeter] 108 H Respiratory Rate 20 Blood Pressure [Le ft Arm] Blood Pressure [Ri ght Arm] 127/87 Pulse Oximetry 93 Oxygen Delivery Me thod BiPAP Oxygen Flow Rate 2 Fraction of Inspir ed Oxygen 0.25 10/07/24 16:00 10/07/24 16:00 10/07/24 16:00 Temperature 97.7 F Pulse Rate Pulse Rate [Pulse Oximeter] 97 97 Respiratory Rate 20 20 Blood Pressure [Le ft Arm] Blood Pressure [Ri ght Arm] 109/69 Pulse Oximetry 92 93 Oxygen Delivery Me thod BiPAP BiPAP Oxygen Flow Rate 2 2 Fraction of Inspir ed Oxygen 10/07/24 19:00 10/07/24 23:00 10/07/24 23:55 Temperature 98 F Pulse Rate 77 122 H Pulse Rate [Pulse Oximeter] 98 Respiratory Rate 20 Blood Pressure [Le ft Arm] Blood Pressure [Ri ght Arm] 120/71 Pulse Oximetry 91 Oxygen Delivery Me thod Nasal Cannula Oxygen Flow Rate 2 Fraction of Inspir ed Oxygen 10/07/24 23:55 10/07/24 23:55 10/07/24 23:55 Temperature 97.5 F L Pulse Rate Pulse Rate [Pulse Oximeter] 92 92 Respiratory Rate 22 22 22 Blood Pressure [Le ft Arm] 131/91 H Blood Pressure [Ri ght Arm] Pulse Oximetry 93 93 Oxygen Delivery Me thod Nasal Cannula Nasal Cannula Oxygen Flow Rate 2 2 Fraction of Inspir ed Oxygen 10/08/24 01:52 10/08/24 01:53 10/08/24 03:31 Temperature 97.6 F Pulse Rate Pulse Rate [Pulse Oximeter] 76 Respiratory Rate 18 Blood Pressure [Le ft Arm] 122/70 Blood Pressure [Ri ght Arm] Pulse Oximetry 77 L 88 90 Oxygen Delivery Me thod Nasal Cannula Nasal Cannula Nasal Cannula Oxygen Flow Rate 1.5 2.5 1.5 Fraction of Inspir ed Oxygen 10/08/24 04:06 10/08/24 07:16 10/08/24 07:42 Temperature 97 F L Pulse Rate 73 Pulse Rate [Pulse Oximeter] 85 Respiratory Rate 14 Blood Pressure [Le ft Arm] 130/81 Blood Pressure [Ri ght Arm] Pulse Oximetry 86 L 88 Oxygen Delivery Me thod Nasal Cannula Nasal Cannula Oxygen Flow Rate 2 1 Fraction of Inspir ed Oxygen DS: Data Data Completed and Pending Labs on day of discharge: Labs from last 24 hours 10/08/24 10/08/24 10/07/24 09:46 05:45 15:35 WBC 6.91 RBC 4.38 Hgb 12.9 Hct 43.9 MCV 100 MCH 30 MCHC 29 L Plt Count 110 L VBG pH 7.307 L 7.415 VBG pCO2 91 H* 69 H* VBG pO2 46.4 33.0 VBG HCO3 46 H 44 H Sodium 144 Potassium 3.8 Chloride 93 L Carbon Dioxide 40 H Anion Gap 11 BUN 44 H Creatinine 1.3 Estimated Creat Clear 41.78 Estimated GFR 45 Glucose 117 H Calcium 8.4 Phosphorus 6.6 H* C-Reactive Protein Pending NT-Pro-B Natriuret Pep Pending Albumin 3.8 Procalcitonin Pending Lab Acknowledgement Test Added 10/04/24 20:11 WBC RBC Hgb Hct MCV MCH MCHC Plt Count VBG pH VBG pCO2 VBG pO2 VBG HCO3 Sodium Potassium Chloride Carbon Dioxide Anion Gap BUN Creatinine Estimated Creat Clear Estimated GFR Glucose Calcium Phosphorus C-Reactive Protein Pending NT-Pro-B Natriuret Pep Albumin Procalcitonin Lab Acknowledgement Preliminary micro results at discharge 10/04/24 20:11 Blood Culture - Preliminary Blood NO GROWTH AFTER 72 HOURS Discharge Plan Discharge Date of Admission: 10/05/24 07:55 Attending Physician on Admission: Tasneem Ding Primary Care Provider: Provider,Not a Local Discharge Medications: No Action gabapentin 600 mg tablet 600 mg PO HS torsemide 20 mg tablet 20 mg PO DAILY carvedilol 6.25 mg tablet 6.25 mg PO Q12H Rx Instructions: Take 1 tablet (6.25 mg total) by mouth 2 (two) times a day with meals. spironolactone 25 mg tablet 25 mg PO DAILY Rx Instructions: Take 1 tablet (25 mg total) by mouth daily. Fill upon patient reqest. gabapentin 300 mg capsule 300 mg PO TID Rx Instructions: Take 1 capsule (300 mg total) by mouth 3 (three) times a day. oxycodone 5 mg tablet 5 mg PO Q6H PRN Rx Instructions: Take 1 tablet (5 mg total) by mouth every 6 (six) hours as needed for pain Indication: Chronic Pain/Nonacute Pain. apixaban 5 mg tablet 5 mg PO Q12H Rx Instructions: Take 1 tablet (5 mg total) by mouth 2 (two) times a day. atorvastatin 40 mg tablet 40 mg PO HS Follow Up Appointments: Provider,Not a Local [Primary Care Provider] -
[2024-10-08 10:20] LABS: C Reactive Protein* 1.3 mg/dL (0.5-1.0)
[2024-10-08 10:21] LABS: C Reactive Protein* 1.3 mg/dL (0.5-1.0)
[2024-10-08 10:32] LABS: NT Pro B Type NatriureticPept* 605 pg/mL
--- NOTE | 2024-10-08 11:20 | W.PM.CROSSCO ---
Subjective Subjective Date Seen: 10/08/24 Principal diagnosis: JEAN - need for BiPAP therapy Interval history: In collaboration with respiratory therapy; we are recommending Zuleyma use an AutoSet BiPAP machine with a max pressure of 24 cm of water and a minimum pressure of 10 cm of water. Pressure support at 12. She will need the unit along with the mask, tubing, reservoir, cushions, etc. Her diagnosis is severe JEAN (G47.33), need will be lifetime. Use is anytime she naps and at least six hours at night.
[2024-10-08 13:12] LABS: HCO3 VBG 45 mmol/L (21-28); PO2 VBG 49.8 mmHG (25-47); pH VBG 7.474 (7.32-7.43)
[2024-10-08 13:14] LABS: PCO2 VBG 61 mmHG (40-50)
[2024-10-08] MEDS: NYSTATIN CREAM 30 GM 1 APPLIC TOPICAL ×3 (13:58→22:04)
[2024-10-08] MEDS: NYSTATIN POWDER 1 APPLIC TOPICAL ×2 (13:59→22:04)
[2024-10-08] MEDS: SODIUM CHLORIDE 0.9 % (FLUSH) 10 ML SYRINGE 5 ML IVF ×2 (13:59→21:40)
--- NOTE | 2024-10-08 14:24 | PC.SOCIAL ---
Discharge planning: Received calls back from [facility] and [facility] stating they can not accept a pt with a need for Bipap. Received call from Sofiya at [facility] stating they can accept pt for admit tomorrow and can arrange for the Bipap to be delivered in advance. Met with pt who agrees with plan for discharge to [facility]. Secure emailed MD order for Bipap to [facility] who will arrange to have this delivered prior to admit tomorrow. logging worker to follow up as needed.
--- NOTE | 2024-10-08 15:14 | PC.NURSE ---
1030 dose of metoprolol not given. HR=73.
--- NOTE | 2024-10-08 18:25 | PC.NURSE ---
shift note: vss stable. pt using bipap this afternoon [id number]. pt was able to sleep with bipap on and stated the newly fitted mask felt better. LS dim throughout. IV patent. HR reg/irreg with rates 74-104. pt had moderate loose BM.
[2024-10-08] MEDS: ATORVASTATIN CALCIUM 40 MG TABLET PO (21:39)
[2024-10-09 02:37] VITALS: BP 118/84; PULSE 68; RESP 16; TEMP 36.3; O2SAT 91
[2024-10-09 06:18] LABS: HCO3 VBG 46 mmol/L (21-28); PO2 VBG < 30.1 mmHG (25-47); pH VBG 7.423 (7.32-7.43)
[2024-10-09 06:23] LABS: Hematocrit 42.3 % (33.0-51.0); Hemoglobin* 12.6 gm/dL (12.0-16.0); Mean Corpuscular HGB Conc 30 gm/dL (32-36); Mean Corpuscular Hemoglobin 29 pg (26-34); Mean Corpuscular Volume 99 fL (80-100); PCO2 VBG 70 mmHG (40-50); Platelet Count* 115 K/uL (140-440); Red Blood Count 4.29 m/uL (4.00-5.20); White Blood Count* 6.58 K/uL (4.50-11.00)
[2024-10-09 06:24] LABS: Slide Review Reflex No
[2024-10-09 06:39] LABS: Albumin* 3.8 g/dL (3.3-5.0); Chloride* 91 mmol/L (96-114); Sodium* 142 mmol/L (135-149)
[2024-10-09 06:40] LABS: Potassium* 3.4 mmol/L (3.6-5.1)
[2024-10-09 06:42] LABS: Creatinine* 1.3 mg/dL (0.5-1.5); Est. Creatinine Clearance* 41.78; Estimated Glomerular Filt Rate 45 ml/min
[2024-10-09 06:43] LABS: Blood Urea Nitrogen* 50 mg/dL (7-30); Calcium* 9.1 mg/dL (8.4-10.6); Glucose* 111 mg/dL (60-115)
[2024-10-09 07:03] LABS: Anion Gap 10 mEq/L (7-15); Carbon Dioxide* 41 mmol/L (20-32)
[2024-10-09] MEDS: ACETAMINOPHEN 325 MG TABLET 975 MG PO (09:06)
[2024-10-09] MEDS: GABAPENTIN 300 MG CAPSULE PO (09:07)
[2024-10-09] MEDS: carvediloL 6.25 MG TABLET PO (09:07)
[2024-10-09] MEDS: APIXABAN 5 MG TABLET PO (09:07)
[2024-10-09] MEDS: MAGNESIUM OXIDE 400 MG TABLET 800 MG PO (09:08)
[2024-10-09] MEDS: cephALEXin 500 MG CAPSULE PO (09:08)
[2024-10-09] MEDS: SPIRONOLACTONE 25 MG TABLET PO (09:08)
[2024-10-09] MEDS: LACTOBACILLUS ACIDOPHILUS 1 TABLET 1 TAB PO (09:08)
[2024-10-09] MEDS: SODIUM CHLORIDE 0.9 % (FLUSH) 10 ML SYRINGE 5 ML IVF (09:08)
[2024-10-09 09:25] VITALS: BP 131/73; PULSE 94; RESP 20; TEMP 36.6; O2SAT 98
--- NOTE | 2024-10-09 09:46 | PM.DS1 ---
DS: Providers Provider Date Seen: 10/09/24 Date of admission: 10/05/24 07:55 Primary care physician: Not a Local Provider Admitting Clinician: Tasneem Ding MD Consults: 10/05/24 00:05 Consult to Physical Therapy [CONS] Routine Comment: Reason(s) for PT Consult:: Evaluate and Treat Any Restrictions?:: No Restrictions Consult to Boathouse Keeper [CONS] Routine Comment: Reason for Consult:: Discharge Planning Needs 10/05/24 00:06 Consult to Occupational Therapy [CONS] Routine Comment: Reason(s) for OT Consult:: Evaluate and Treat Any Restrictions?:: No Restrictions Attending Physician on discharge: Priya Carmona MD [facility] Date of Discharge: 10/09/24 DS: Diagnosis Discharge Diagnosis (1) Respiratory failure with hypoxia: Status: Acute Problem details: - CHF exacerbation resolved. - severe JEAN, BiPAP dependent, oxygen bleed in, hypercapnic. will need close monitoring for compliance, outpatient sleep study and weight loss. -was on antibiotics early in hospitalization but we feel this was not infectious and antibiotics were discontinued. (2) JEAN treated with BiPAP: Status: Acute Problem details: -severe. -BiPAP with all naps and nighttime rest. Needs physical rehab, weight loss, outpatient sleep study, close follow-up with pulmonary medicine/sleep medicine. (3) Hypercapnia: Status: Acute Problem details: -without BiPAP she can easily become obunded with hypercapnia. (4) CHF (congestive heart failure): Status: Acute Problem details: - history of chronic diastolic heart failure followed by [facility] 10/05: Holding home torsemide and spironolactone. Lasix 40 mg IV b.i.d. Strict I&Os, daily weights. Echo completed 10/05 10/06: Last dose of IV Lasix given this morning 10/06. Will resume home torsemide (with two day bump to 40mg) , spironolactone, Eliquis, Coreg 10/06. Down 5.6 lb 10/05/24 Final Impressions: 1. Normal LV size, normal wall thickness, normal function with an estimated EF of 65 - 70%. 2. Right ventricular cavity size is normal, global systolic RV function is normal. 3. Severely enlarged left atrium. 4. No significant valve disease detected. 5. Echo contrast was administered to enhance visualization of all left ventricular segments. 10/07/24 - torsemide 40mg (20mg is home dose); down 8.6 lbs, resume coreg with prn metoprolol for rate control. still on 2L NC and bipap at night. needs updated sleep study and JEAN treatment. -10/09 discharge on torsemide 20 mg daily, aldactone and postassium. stay compliant! (5) Unspecified atrial fibrillation: Status: Acute Problem details: - Persistent, on apixaban and carvedilol - was in RVR upon arrival to the ER, this resolved during stay/resuscitation - continue home medications with prn IV metoprolol for rate control 10/05: Holding home carvedilol while on BiPAP. Scheduled metoprolol 5 mg IV q.6 with parameters. Holding home apixiban, starting enoxaparin 120 bid 10/06: Back to home meds. Eliquis, Coreg, spironolactone, torsemide - PRN metoprolol for rate increases (6) UTI (urinary tract infection): Status: Acute Problem details: 10/05 -suspected given UA results. History of same -UC pending -discontinue ceftriaxone/azithromycin -Zosyn and vancomycin started 10/06: Stopped IV antibiotics. Profuse diarrhea today. Starting oral Keflex. And probiotics/imodium. C diff negative. -at discharge no further antibiotics. (7) CKD stage 3a, GFR 45-59 ml/min: Status: Acute Problem details: -mild BAILEE with diuresis; following (8) Hypomagnesemia: Status: Acute Problem details: -magnesium 1.1, given 2 g IV given respiratory distress -10/06 1.2, IV replacement -10/07 normal discharging on oral mag (9) Chronic pain syndrome: Status: Acute Problem details: -in reviewing [facility] records, on gabapentin 300 mg t.i.d. + 600 mg at at bedtime + 300 mg p.r.n. - holding -oxycodone - holding -UDS ordered as obtunded, all negative 10/06-holding oxycodone, continuing gabapentin. Improved sensorium. discharging on reduced dose of gabapentin and prn oxycodone (10) CVA (cerebral vascular accident): Status: Acute Problem details: - R parietal-occipital region, 02/2023 - was found down at home, GCS of 3, intubated (11) Graves disease: Status: Acute Problem details: - follows with [facility], not currently on any medications, TSH 0.046. Normal T4. (12) Depression, major, recurrent, mild: Status: Acute (13) Generalized anxiety disorder: Status: Acute Problem details: -resume gabapentin. (14) Generalized weakness: Status: Acute Problem details: -acute on chronic - will need rehab DS: Summary Hospital Course Hospital Course: FINAL DIAGNOSIS/FOLLOW UP ISSUES: 1. Severe JEAN, not treated prior to hospitalization with the exception of NC oxygen. Previous sleep study was years ago. When she presented to the hospital she was in respiratory distress with hypercapnia. This likely stems from acute on chronic diastolic heart failure and worsening central sleep apnea. She is being discharged to rehab with BiPAP. She needs continue strengthening and weight loss. Once out of rehab she needs to follow closely with Pulmonary Medicine and Sleep Medicine. Orders for the BiPAP included AutoSet S/T. Max support 24, min support 10. Pressure support 10 and a rate of 14 with 2 L bleed and oxygen. To be worn during all nebs greater than 1 hour and throughout the night. 2. Acute on chronic heart failure. Her echocardiogram was reassuring. There was no ischemia. We diuresed her with good effect and returned her to her home dose of torsemide. It became obvious to us that she had not been taking her torsemide secondary to increasing weakness and inability to urinate without incontinence. 3. UTI she had a pansensitive E coli UTI during this admission. This was adequately treated in-house with IV and oral antibiotics BRIEF HOSPITAL COURSE: Patient was admitted for 6 days. Synopsis of acute inpatient issues are outlined above. Chronic medical conditions with notable findings outlined above. Essentially for the time spent is inpatient we diuresed an almost 10 lb. She felt a lot better from the edema and shortness of breath standpoint. AFib was controlled with some p.r.n. metoprolol this was added at discharge in addition to her oral medication regimen. Her BiPAP settings in BiPAP mask were a challenge but eventually we found a system that was working well for her and she was able to sleep the last 2 nights prior to discharge. Her CO2 level was a retic. She could become hypercapnic and groggy with just a few hours sleeping without BiPAP. She could blow off her CO2 effectively when awake and or with short term use of her BiPAP. As she goes to rehab we are instructing increase strength and respiratory insight. She needs to be compliant with her diuretics, she needs to be compliant with BiPAP application time. We highly recommend that she follow closely with pulmonary and Sleep Medicine. She will need an outpatient sleep study. DISCHARGE MEDICATIONS: See Reconciled list - SIGNIFICANT CHANGES: Same dose of torsemide, adding supplemental potassium. Supplemental magnesium No further antibiotics Supportive cares for diarrhea, Imodium and probiotics. C diff negative. Specific instructions to the patient and follow-up are outlined below. REVIEW OF SYSTEMS No new chest pain or dyspnea Pain controlled No voiding difficulties Tolerating diet challenge PHYSICAL EXAM: CONSTITUTIONAL: Alert. Insightful. She seems motivated to get home and stay as independent as possible. She misses her pets. We discussed her mobility issues, compliance issues with diuretic therapy and with pressure support oxygen. She acknowledges this will be a tough road but remains resilient in wanting to get home verses assisted living. VITAL SIGNS: see record. HEENT: Normocephalic, atraumatic. PERRL, EOMI, conjunctivae pink, no scleral icterus. Ears and nose externally normal. Pharynx normal. NECK: No JVD. No carotid bruit, no thyromegaly, no adenopathy. CHEST: Clear, aeration improved. Scattered rhonchi. HEART: S1 and S2 normal. Edema 1+ ABDOMEN: Obese. Soft, nontender. Normal bowel sounds. MUSCULOSKELETAL: No gross joint deformity or swelling. NEURO: Cranial nerves intact. Grossly intact. No asymmetric findings. SKIN: No rashes, petechiae, concerning changes PSYCHIATRIC: Mood euthymic. DISPOSITION: Rehab Time spent on discharge 37 minutes. Status at Discharge Functional status at discharge: uses cane/walker Overall status at discharge: patient is progressing back to baseline Time Spent with Patient Time attestation: Total time spent providing and/or coordinating discharge services: Time spent: Greater than 30 minutes Exam Const: Vital Signs, click to edit/add: Vital Signs - 24 hr 10/08/24 13:37 10/08/24 15:00 10/08/24 15:00 Temperature 97.7 F Pulse Rate Pulse Rate [Pulse Oximeter] 106 H Respiratory Rate 22 Blood Pressure [Le ft Arm] Blood Pressure [Ri ght Arm] 118/61 Pulse Oximetry 91 94 Oxygen Delivery Me thod Nasal Cannula Nasal Cannula Oxygen Flow Rate 2 Fraction of Inspir ed Oxygen 0.25 10/08/24 15:00 10/08/24 15:00 10/08/24 19:00 Temperature 97.8 F Pulse Rate 90 Pulse Rate [Pulse Oximeter] 106 H 96 Respiratory Rate 22 20 Blood Pressure [Le ft Arm] 128/76 Blood Pressure [Ri ght Arm] Pulse Oximetry 92 Oxygen Delivery Me thod Nasal Cannula Oxygen Flow Rate 2 Fraction of Inspir ed Oxygen 10/08/24 22:52 10/08/24 22:52 10/08/24 23:00 Temperature 97.4 F L Pulse Rate 65 Pulse Rate [Pulse Oximeter] 88 Respiratory Rate 17 17 Blood Pressure [Le ft Arm] 126/76 Blood Pressure [Ri ght Arm] Pulse Oximetry 94 94 Oxygen Delivery Me thod BiPAP BiPAP Oxygen Flow Rate Fraction of Inspir ed Oxygen 10/09/24 02:37 10/09/24 09:25 10/09/24 09:25 Temperature 97.3 F L Pulse Rate Pulse Rate [Pulse Oximeter] 68 Respiratory Rate 16 20 20 Blood Pressure [Le ft Arm] Blood Pressure [Ri ght Arm] 118/84 Pulse Oximetry 91 98 Oxygen Delivery Me thod BiPAP Nasal Cannula Oxygen Flow Rate 2 Fraction of Inspir ed Oxygen 10/09/24 09:25 Temperature 97.9 F Pulse Rate Pulse Rate [Pulse Oximeter] 94 Respiratory Rate 20 Blood Pressure [Le ft Arm] Blood Pressure [Ri ght Arm] 131/73 Pulse Oximetry 98 Oxygen Delivery Me thod Nasal Cannula Oxygen Flow Rate 2 Fraction of Inspir ed Oxygen DS: Data Data Completed and Pending Labs on day of discharge: Labs from last 24 hours 10/09/24 10/08/24 10/08/24 05:49 13:08 09:46 WBC 6.58 RBC 4.29 Hgb 12.6 Hct 42.3 MCV 99 MCH 29 MCHC 30 L Plt Count 115 L VBG pH 7.423 7.474 H VBG pCO2 70 H* 61 H* VBG pO2 < 30.1 49.8 H VBG HCO3 46 H 45 H Sodium 142 Potassium 3.4 L Chloride 91 L Carbon Dioxide 41 H* Anion Gap 10 BUN 50 H Creatinine 1.3 Estimated Creat Clear 41.78 Estimated GFR 45 Glucose 111 Calcium 9.1 Phosphorus 4.0 C-Reactive Protein NT-Pro-B Natriuret Pep Albumin 3.8 Procalcitonin Lab Acknowledgement Test Added 10/08/24 10/04/24 05:45 20:11 WBC RBC Hgb Hct MCV MCH MCHC Plt Count VBG pH VBG pCO2 VBG pO2 VBG HCO3 Sodium Potassium Chloride Carbon Dioxide Anion Gap BUN Creatinine Estimated Creat Clear Estimated GFR Glucose Calcium Phosphorus C-Reactive Protein 1.3 H 1.3 H NT-Pro-B Natriuret Pep 605 Albumin Procalcitonin 0.10 Lab Acknowledgement Preliminary micro results at discharge 10/04/24 20:11 Blood Culture - Preliminary Blood NO GROWTH AFTER 96 HOURS Discharge Plan Discharge Disposition: Xfer [facility] Date of Admission: 10/05/24 07:55 Attending Provider on Discharge: Priya Carmona Primary Care Provider: Provider,Not a Local Discharge Medications: New potassium chloride 20 mEq tablet extended release 20 meq PO DAILY Qty: 30 0RF acetaminophen 325 mg Tablet 975 mg PO Q6H PRNQty: 90 0RF loperamide 2 mg Capsule 2 mg PO Q2H PRNQty: 30 0RF magnesium oxide 400 mg (241.3 mg magnesium) Tablet 800 mg PO BID Qty: 120 0RF Lactobacillus acidophilus 0.5 mg (100 million cell) Tablet 1,000 mmu cells PO TIDWM Qty: 90 0RF metoprolol tartrate 25 mg tablet 25 mg PO Q8H PRNQty: 30 0RF Rx Instructions: If HR is >110 for longer than 1 hour Continued torsemide 20 mg tablet 20 mg PO DAILY carvedilol 6.25 mg tablet 6.25 mg PO Q12H Rx Instructions: Take 1 tablet (6.25 mg total) by mouth 2 (two) times a day with meals. spironolactone 25 mg tablet 25 mg PO DAILY Rx Instructions: Take 1 tablet (25 mg total) by mouth daily. Fill upon patient reqest. gabapentin 300 mg capsule 300 mg PO TID Rx Instructions: Take 1 capsule (300 mg total) by mouth 3 (three) times a day. apixaban 5 mg tablet 5 mg PO Q12H Rx Instructions: Take 1 tablet (5 mg total) by mouth 2 (two) times a day. atorvastatin 40 mg tablet 40 mg PO HS oxycodone 5 mg tablet 5 mg PO Q6H PRNQty: 30 0RF Rx Instructions: Take 1 tablet (5 mg total) by mouth every 6 (six) hours as needed for pain Indication: Chronic Pain/Nonacute Pain. Discontinued gabapentin 600 mg tablet 600 mg PO HS Discharge Orders: Discharge Order (Routine); Ordered 10/09/24 Ordered By: Priya Carmona Additional Instructions: 1. Zuleyma has limited mobility and needs motivation to keep moving. She is on torsemide and would like to use her home PureWick external catheter system at night. Please accommodate if possible. During the day she needs to get up and use the bathroom. 2. She retains CO2. It is imperative that her oxygen not be increased past 2Liters. If she is hypoxic, she needs to sit down in recliner and get her BiPAP back on. Turing up her oxygen will make her worse. She needs to wear her BiPAP for every nap in the day, limit this, and all night. If she seems groggy - have her engage in activity, move about and/or place her BiPAP on. For [facility] respiratory supply: she has had trouble with a comfortable fitting mask; please work with so her compliance is as high as possible. See separate script for BiPAP Auto Set S/T, Max support [id number], min support 10. Pressure support 10. Rate 14. This should be used with 2L of oxygen bleed in. Activity Level: Activity as Tolerated Activity Detail: Make sure she sleeps with head of bed elevated as much as possible. does well in recliner. Discharge Diet: Heart Healthy (2 gm sodium, low fat) Follow Up Appointments: Uzair Call MD [Referring] - (2-4 weeks. f/u on acute CHF and severe JEAN - new BiPAP patient) [facility]: [facility] Instructions Admit to: SNF Discharge Potential: Fair Length of Stay: 30-90 days Can use facility standing orders?: Yes Code Status: Witnessed Arrest Only TEDs: N/A Rehab Potential: Fair Therapy: Physical Therapy, Occupational Therapy and Speech Therapy Therapy Orders: Evaluate and Treat and Gait Training Oxygen Delivery Method: BiPAP Oxygen Flow Rate: 2L while awake and eating, doing therapies. DO NOT INCREASE OXYGEN >2L Urinary Catheter: No Lab Orders: BMP, Venous Blood Gas in one week Orders are good >30 days: Yes
--- NOTE | 2024-10-09 10:26 | PC.SOCIAL ---
Discharge planning: Pt has been accepted for admit to [facility] today for rehab. Pt is aware and agrees with this plan. Pt qualifies for EMS medical transportation and this has been requested for 11:00 today. PT has received a copy of her Important Message from Medicare. PAS completed and submitted [id number]. Discharge orders have been secure emailed to Pritesh at [facility]. Received confirmation from [facility] that Bipap machine and orders have been received and are ready at facility for pt arrival.
[2024-10-09] MEDS: NYSTATIN POWDER 1 APPLIC TOPICAL (10:52)
[2024-10-09] MEDS: NYSTATIN CREAM 30 GM 1 APPLIC TOPICAL (10:53)
--- NOTE | 2024-10-09 11:45 | PC.NURSE ---
Discharge - Pt alert, oriented, cooperative. Up with x1 assistance and walker/gait belt. Pt noted to be visibly fatigued with exertion, appeared to recover appropriately with rest. Tolerating O2 via nasal cannula at 2L while awake. Continent of bowel and bladder, tolerating regular diet and fluids. Reported discomfort in back and buttocks rated 3/10, described by pt as feeling bruised. Visual inspection by RN indicated no visible bruising, but RN noted blanchable discoloration of buttocks to which the pt stated they did not feel pain or discomfort. Observation noted during nurse to nurse handoff to SNF. IV removed with catheter intact, d/c education explained to pt with verbalized understanding. Pt d/c'd to [address] [place] [address] via non-emergent EMS at approximately 1115.
== END 2024-10-09 11:15 | DRG 154 ==
LOC: ED 21:45 → MEDSURG 22:01
PROVIDERS: Family Medicine; Physician Assistant; Admitting Provider Family Medicine; Emergency Provider Emergency Medicine; Visit Provider Family Medicine
DX: G47.33 Obstructive sleep apnea (adult) (pediatric) (principal); I50.33 Acute on chronic diastolic (congestive) heart failure; J96.22 Acute and chronic respiratory failure with hypercapnia; J96.21 Acute and chronic respiratory failure with hypoxia; I13.0 Hypertensive heart and chronic kidney disease with heart failure and stage 1 through stage 4 chronic kidney disease, or unspecified chronic kidney disease; N39.0 Urinary tract infection, site not specified; I48.19 Other persistent atrial fibrillation; F33.9 Major depressive disorder, recurrent, unspecified; N17.9 Acute kidney failure, unspecified; Z68.41 Body mass index [BMI] 40.0-44.9, adult; E66.01 Morbid (severe) obesity due to excess calories; Z99.89 Dependence on other enabling machines and devices; Z99.81 Dependence on supplemental oxygen; E87.6 Hypokalemia; Z79.01 Long term (current) use of anticoagulants; B96.20 Unspecified Escherichia coli [E. coli] as the cause of diseases classified elsewhere; N18.31 Chronic kidney disease, stage 3a; E83.42 Hypomagnesemia; I69.398 Other sequelae of cerebral infarction; R53.1 Weakness; F41.1 Generalized anxiety disorder; G89.4 Chronic pain syndrome; E05.00 Thyrotoxicosis with diffuse goiter without thyrotoxic crisis or storm
CPT/HCPCS: 36415; 36600; 51701; 71045; 71046; 71260; 80048; 80053; 80069; 80306; 81001; 82330; 82803; 83605; 83735; 83880; 84145; 84439; 84443; 84484; 85025; 85027; 86140; 87040; 87081; 87086; 87493; 87631; 93005; 93306; 94660; 94664; 94761; 97110; 97116; 97162; 97166; 97530; 97535; 99284; 99285; A9270; J0456; J0696; J1650; J1940; J2543; J3372; J3475; J7030; J7050; Q9957; Q9967

== ENCOUNTER 2024-10-09 11:08 | Outpatient (CLI) | payer MEDICARE, SELFPAY | END 2024-10-09 11:09 | disposition home or self-care (01) | LOC: AMB 10-19 18:36 | PROVIDERS: Visit Provider Emergency Medicine | DX: J96.91 Respiratory failure, unspecified with hypoxia (principal); I50.9 Heart failure, unspecified; R53.1 Weakness; N18.30 Chronic kidney disease, stage 3 unspecified | CPT/HCPCS: A0425; A0428 ==

== ENCOUNTER 2024-11-07 11:41 | Outpatient (REF) | payer MEDICARE, SELFPAY ==
[2024-11-07 12:03] LABS: Appearance Urine Clear (Clear); Bilirubin Urine Negative (Negative); Blood Urine Negative (Negative); Color Urine Yellow (Yellow); Glucose Urine Negative (Negative); Ketones Urine Negative (Negative); Leukocyte Esterase Urine Negative (Negative); Nitrite Urine Negative (Negative); Protein Urine Negative (Negative); Urobilinogen Urine 0.2 (0.2-1.0)
[2024-11-07 12:12] LABS: RBC Urine 0-2 (0-2); WBC Urine 0-2 (0-5)
== END 2024-11-07 11:42 | disposition home or self-care (01) ==
LOC: NPINS 11:41
PROVIDERS: Visit Provider Nurse Practitioner Gerontology
DX: R39.15 Urgency of urination (principal)
CPT/HCPCS: 81001; 87086